=== PATIENT | female | born 1955 | race Caucasian/White ===

== ENCOUNTER → 2018-05-24 02:41 | Outpatient (CLI) | payer MEDICAID, SELFPAY ==
[2018-05-24 08:36] LABS: Cholesterol 224 mg/dL (50-200); Triglyceride 192 mg/dL (30-150)
[2018-05-24 08:48] LABS: ALT 36 U/L (12-78); AST 25 U/L (15-37)
== END ==
PROVIDERS: Visit Provider Dermatology
DX: L40.0 Psoriasis vulgaris (principal); Z79.899 Other long term (current) drug therapy
CPT/HCPCS: 36415; 85027; 82465; 84450; 84460; 84478

== ENCOUNTER → 2018-05-26 01:49 | Outpatient (CLI) | payer MEDICAID, SELFPAY ==
[2018-05-26 07:33] LABS: HGB 13.8 g/dL (12.0-15.5); Mean Corp. HGB Concentration 33.7 g/dL (32.0-36.0); Mean Corpuscular Hemoglobin 32.6 pg (27.0-33.0); Mean Corpuscular Volume 96.9 fL (80-95); Mean Platelet Volume 9.9 fL (8.0-11.0); Platelet Count 289 x1000/uL (130-400); RBC 4.23 m/cumm (4.00-5.20); RBC Distribution Width 13.4 % (11.7-14.6); White Blood Cell Count 5.57 k/cumm (4.4-10.8)
== END ==
PROVIDERS: Visit Provider Dermatology
DX: L40.0 Psoriasis vulgaris (principal); Z79.899 Other long term (current) drug therapy
CPT/HCPCS: 36415; 85027

== ENCOUNTER 2018-11-28 02:34 | Outpatient (CLI) | payer MEDICAID, SELFPAY ==
[2018-11-28 07:47] LABS: HCT 43.8 % (36.0-46.0); HGB 14.2 g/dL (12.0-15.5); Mean Corp. HGB Concentration 32.4 g/dL (32.0-36.0); Mean Corpuscular Hemoglobin 31.6 pg (27.0-33.0); Mean Corpuscular Volume 97.3 fL (80-95); Mean Platelet Volume 11.3 fL (8.0-11.0); Platelet Count 253 x1000/uL (130-400); RBC Distribution Width 13.5 % (11.7-14.6); White Blood Cell Count 6.06 k/cumm (4.4-10.8)
[2018-11-28 08:03] LABS: ALT 22 U/L (12-78); AST 16 U/L (15-37); Albumin 3.9 g/dL (3.4-5.0); Alkaline Phosphatase 67 U/L (46-116); Anion Gap 7.4 mmol/L (3-11); BUN 14 mg/dL (7-18); Bilirubin, Total 0.4 mg/dL (0.2-1.0); CO2 27.6 mmol/L (21.0-32.0); CREATININE 0.78 mg/dL (0.55-1.02); Calcium 9.3 mg/dL (8.5-10.1); Chloride 107 mmol/L (98-107); Cholesterol 205 mg/dL (50-200); Glucose 112 mg/dL (70-100); HDL Cholesterol 52 mg/dL (40-60); LDL CHOLESTEROL 127 mg/dL (<100); Potassium 3.8 mmol/L (3.5-5.1); Sodium 142 mmol/L (136-145); Total Protein 8.1 g/dL (6.4-8.2); Triglyceride 128 mg/dL (30-150)
== END 2018-11-28 02:54 ==
PROVIDERS: Dermatology
DX: L40.0 Psoriasis vulgaris (principal); Z79.899 Other long term (current) drug therapy; I10 Essential (primary) hypertension; E78.5 Hyperlipidemia, unspecified; F41.9 Anxiety disorder, unspecified; R63.8 Other symptoms and signs concerning food and fluid intake; M25.552 Pain in left hip; G89.29 Other chronic pain
CPT/HCPCS: 36415; 80053; 80061; 83721; 85027

== ENCOUNTER 2019-01-08 01:09 | Outpatient (CLI) | payer MEDICAID, SELFPAY ==
--- NOTE | 2019-01-08 10:05 | DI.MAMMO_ITS ---
SYMPTOM/DIAGNOSIS: SCREENING MAMMOGRAMS: Mammograms were interpreted according to the usual protocol including computer analysis with CAD system, tomosynthesis and C view imaging. Comparison is made with exams from [id number]. The breasts are composed of scattered fibroglandular densities, breast density, Category B. No suspicious masses or suspicious microcalcifications are seen. There has been no significant change. IMPRESSION: Category 1, negative mammogram. Yearly screening mammography is recommended. [facility] ASSESSMENT OF FINDINGS: Negative. Category 1. Patient will receive a letter notifying them of these results. BI-RADS category B. There are scattered areas of fibroglandular density.
== END 2019-01-08 01:29 ==
DX: Z12.31 Encounter for screening mammogram for malignant neoplasm of breast (principal)
CPT/HCPCS: 77063; 77067

== ENCOUNTER 2019-06-04 01:50 | Outpatient (CLI) | payer MEDICAID, SELFPAY ==
[2019-06-04 07:42] LABS: Mean Corp. HGB Concentration 32.6 g/dL (32.0-36.0); Mean Corpuscular Hemoglobin 30.8 pg (27.0-33.0); Mean Corpuscular Volume 94.7 fL (80-95); Mean Platelet Volume 10.5 fL (8.0-11.0); Platelet Count 330 x1000/uL (130-400); RBC 4.54 m/cumm (4.00-5.20); RBC Distribution Width 12.9 % (11.7-14.6); White Blood Cell Count 5.61 k/cumm (4.4-10.8)
[2019-06-04 08:22] LABS: ALT 24 U/L (12-78); AST 15 U/L (15-37)
[2019-06-04 08:24] LABS: Cholesterol 217 mg/dL (50-200); Triglyceride 158 mg/dL (30-150)
== END 2019-06-04 02:10 ==
PROVIDERS: Visit Provider Dermatology
DX: L40.0 Psoriasis vulgaris (principal); Z79.899 Other long term (current) drug therapy
CPT/HCPCS: 36415; 85027; 82465; 84450; 84460; 84478

== ENCOUNTER 2019-08-06 08:56 | Outpatient (CLI) | payer MEDICAID, SELFPAY ==
--- NOTE | 2019-08-06 08:52 | DI.RAD_ITS ---
EXAM: XR HIP RT 1V INDICATION: hip pain. TECHNIQUE: 2D digital imaging was performed. FINDINGS: Joint space narrowing, articular sclerosis and periarticular hypertrophic spurring are demonstrated. There is also subchondral cyst formation. The findings are consistent with severe DJD involving the right hip.
--- NOTE | 2019-08-06 08:52 | DI.RAD_ITS ---
EXAM: XR HIP LT COMPLETE AP PELVIS INDICATION: bilateral hip pain. COMPARISON: XR HIP RT 1V from 08/06/2019 TECHNIQUE: 2D digital imaging was performed. FINDINGS: There is joint space narrowing, articular sclerosis and subchondral cyst formation and periarticular hypertrophic spurring. The findings are consistent with severe DJD involving the left hip.
== END 2019-08-06 09:16 ==
PROVIDERS: Visit Provider Physician Assistant
DX: M25.551 Pain in right hip (principal); M25.552 Pain in left hip; M16.0 Bilateral primary osteoarthritis of hip
CPT/HCPCS: 73501; 73502

== ENCOUNTER 2019-09-26 09:48 | Outpatient (CLI) | payer MEDICAID, SELFPAY ==
--- NOTE | 2019-09-26 09:03 | HPE_ITS ---
Assessment and Plan Assessment and plan (1) Degenerative joint disease of left hip: Status: Chronic Assessment and plan: Plan: Patient is a reliable historian and denies any areas of skin breakdown along the left groin and anterior leg. Educated patient that if they develop any lesions, redness or skin breakdown to contact office as skin concerns would be a reason to cancel surgery. Patient gives verbal understanding. Educated patient on surgery covering surgical technique via models, recovery process, benefits and risks including but not limited to risk of infection, blood clot, fracture, numbness/tingling, leg length discrepancy, damage to soft tissue/blood vessels/nerves in detail. After discussion patient gives verbal understanding of risks and elects to proceed with scheduling surgery. Patient had opportunity to have questions answered to their satisfaction. They will contact office if issues arise. Patient will continue to be scheduled for left total hip replacement with Dr. Garcia. History of Present Illness Narrative: Ms. Grajeda is a 64-year-old female who presents to clinic for pre- operative exam for scheduled left CARMEN. Patient reports several year history of left hip pain with more extreme pain affecting her gait over the last year and the right hip has started to hurt this year as well. Patient identifies majority of her discomfort along lateral aspect of her hips. Pain is noted to be most severe when moving from sitting to standing position, sitting for prolonged amounts of time, at night when laying on her side, when ascending any hills or stairs and with even hip flexion such as stepping over the small threshold into her shower. Patient reports difficulty putting on socks on the left foot and has adapted her shoe wear to avoid laces. Occasionally patient will have radiation of pain down to her left knee. In addition to pain patient feels that her lower extremities are weak and she has noticed difficulty walking due to bilateral hip pain. Patient has been using a cane to help ambulate for approximately 2 months. Previously she has attempted to treat her discomfort by taking Tylenol and Celebrex without symptomatic relief. Review of patient's chart shows history of trochanteric bursa injection by Dr. Masters in March 2018 which patient states did not provide significant pain relief. Reports fell on the Tuesday after Thanksgiving backwards onto her concrete steps at her apartment. Patient was able to stand and weight bear with discomfort that lasted a few days before resolving back to her baseline. Denies symptoms of numbness or tingling. Due to continued pain and severe DJD she was offered surgical intervention and elected to proceed. Pertinent Surgical Information Denies past medical history of: stroke, cardiac issues, angina, COPD, sleep apnea, renal issues, liver issues, hepatitis, gastrointestinal issues, ulcers, bleeding disorders, seizures, migraines, depression, diabetes, autoimmune disorders Denies prior complications from surgery or anesthesia. Review of Systems Constitutional Constitutional: Denies fever(s), Denies frequent falls and Denies headache(s) Eyes Eyes: Denies change in vision ENT Ears, Nose, Mouth, and Throat: Denies dizziness, Denies ear discharge, Denies headache(s), Denies epistaxis, Denies nasal discharge and Denies sore throat Cardiovascular Cardiovascular: Denies chest pain, Denies rapid heart rate, Denies irregular heart rhythm, Denies dyspnea, Denies dyspnea on exertion, Denies orthopnea, Denies paroxysmal nocturnal dyspnea and Denies slow heart rate Respiratory Respiratory: Denies cough, Denies dyspnea, Denies dyspnea on exertion and Denies wheezing Gastrointestinal Gastrointestinal: Denies abdominal pain, Denies melena, Denies hematochezia, Denies constipation, Denies diarrhea, Denies nausea and Denies vomiting Genitourinary Genitourinary: Denies hematuria, Denies dysuria and Denies urinary urgency Musculoskeletal Musculoskeletal: Reports as per HPI, Denies numbness and Denies tingling Neurologic Neurologic: Denies dizziness, Denies frequent falls, Denies headache(s), Denies numbness and Denies tingling Psychiatric Psychiatric: Denies anxiety and Denies depression Allergic/Immunologic Allergic/Immunologic: Denies wheezing [facility] Medical History (Updated 09/26/19 @ 09:14 by Winter Chester) Anxiety (Chronic 09/01/17) Asthma (Suspected) does not use inhalers Cyst of joint of left hand (Suspected 11/29/17) Cystocele, midline (Chronic) Degenerative joint disease of left hip (Chronic) Degenerative joint disease of right hip (Chronic) Essential hypertension (Chronic 01/07/14) Glaucoma (Chronic) 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 Kang and Gaby Hyperlipidemia (Chronic) Not on medication; states borderline Increased body mass index (Acute 01/07/14) Psoriasis (Chronic 06/12/18) Derm Consult 06/09/18: Controlled with methotrexate. 2.5% hydrocortisone cream ears & elbows. Retention of urine (Acute) Rosacea (Acute) Urticaria (Acute 01/07/14) Uterine leiomyoma (Resolved) Surgical History Cervical Procedure (07/17/12) Endometrial Biopsy Colonoscopy - IV Sedation (10/06/11) HERNIA REPAIR HIATAL Social History (Updated 09/26/19 @ 09:16 by Winter Chester) Smoking/Tobacco Use Status: Never Alcohol Intake: current Substance use type: does not use Caregiver/Support person: No Household members: none Housing: apartment Pets and animals: No Sexually active: No Do you think of yourself as: straight/heterosexual Current gender identity: female What is your relationship status?: How often do you talk on the phone with friends or family?: three or more times per week How often do you get together with friends or relatives?: three or more times per week How often do you attend faith or rastafarian services?: decline to answer Do you belong to any clubs or organized social groups?: no Panel score (0-1 are the most socially isolated patients): 1 What type of physical activity do you participate in: walking Duration: 15-30 minutes/day Frequency: daily Claire/Samaritan: Yarsani Special claire needs: No Meds Home Medications and Allergies Home Medications Medication Instructions Recorded Confirmed Type calcium carbonate-vitamin D3 1 tab PO PRN 08/12/14 09/26/19 History folic acid 1 mg PO 6 days weekly 02/13/16 09/26/19 History triamcinolone acetonide 1 applic TOPICAL BID PRN script 06/01/16 09/26/19 History acetaminophen [Tylenol Extra 1,000 mg PO TID PRN #90 tab-cap 12/27/17 09/26/19 History Strength] loratadine [Claritin] 10 mg PO DAILY #30 tab-cap 01/23/18 09/26/19 Rx docosanol [Abreva] 2 gm TOPICAL Q3H PRN #1 script 01/25/18 09/26/19 Rx atenolol 25 mg PO DAILY #45 tab-cap 08/21/18 09/26/19 Rx methotrexate sodium 2.5 mg tablet 10 mg PO one day a week tab 12/10/18 09/26/19 History celecoxib 200 mg capsule 200 mg PO BID #60 cap 06/13/19 09/26/19 Rx lorazepam 0.5 mg tablet 0.5 mg PO HS PRN #30 tab-cap 06/13/19 09/26/19 Rx tramadol 50 mg tablet 50 mg PO BID PRN #14 tab 09/05/19 09/26/19 Rx Hospital Bed #1 ea 09/24/19 09/26/19 Rx Allergies Allergy/AdvReac Type Severity Reaction Status Date / Time band aid adhesive AdvReac Intermediate swelling Uncoded 09/26/19 09:16 and itching Exam Const General: cooperative and no acute distress HENMT Head: normal to inspection, normocephalic and atraumatic Ears: external ears normal General nose exam: external nose normal and no nasal discharge Face and sinus: face symmetric Mouth: oral mucosae normal, lip normal, tongue normal and moist mucous membranes Teeth and gingiva: dentition normal Throat: posterior oropharynx normal Eyes General: appearance normal, both eyes and all related structures EOM: EOM intact bilaterally Other: Glaucoma in the left eye Neck Neck: trachea midline Carotids: normal carotid upstroke Lymphatic: no lymphadenopathy noted Resp Effort & Inspection: normal respiratory effort and able to speak in complete sentences Auscultation: clear to auscultation bilaterally, no rales, no rhonchi and no wheezes Cardio Heart Sounds: S1 normal, S2 normal and no murmurs Pulses: radial pulses present bilaterally GI Palpation: soft, no hepatosplenomegaly and nontender Auscultation: normal bowel sounds Skin General skin exam: no rashes or lesions noted
[2019-09-26 11:27] LABS: HCT 43.4 % (36.0-46.0); HGB 14.6 g/dL (12.0-15.5); Mean Corp. HGB Concentration 33.6 g/dL (32.0-36.0); Mean Corpuscular Hemoglobin 32.1 pg (27.0-33.0); Mean Corpuscular Volume 95.4 fL (80-95); Mean Platelet Volume 10.2 fL (8.0-11.0); Platelet Count 411 x1000/uL (130-400); RBC 4.55 m/cumm (4.00-5.20); RBC Distribution Width 13.7 % (11.7-14.6); White Blood Cell Count 8.56 k/cumm (4.4-10.8)
[2019-09-26 12:09] LABS: Anion Gap 10.5 mmol/L (3-11); BUN 9 mg/dL (7-18); CO2 26.5 mmol/L (21.0-32.0); CREATININE 0.71 mg/dL (0.55-1.02); Calcium 9.5 mg/dL (8.5-10.1); Chloride 107 mmol/L (98-107); Glucose 97 mg/dL (74-106); Sodium 144 mmol/L (136-145)
== END 2019-09-26 10:08 ==
PROVIDERS: Visit Provider Student in an Organized Health Care Education/Training Program
DX: M25.552 Pain in left hip (principal); M17.12 Unilateral primary osteoarthritis, left knee; Z01.818 Encounter for other preprocedural examination; Z01.812 Encounter for preprocedural laboratory examination
CPT/HCPCS: 36415; 80048; 85027; 86850; 86900; 86901; NC

== ENCOUNTER 2019-10-03 05:50 | Inpatient (IN) | payer MEDICAID, SELFPAY ==
[2019-09-26 10:12] VITALS: BP 132/84; PULSE 77; RESP 16; TEMP 37; O2SAT 98
[2019-10-03] VITALS (15 sets, daily range): BP systolic 56–158; BP diastolic 38–89; PULSE 62–110; RESP 16–29; TEMP 36.1–36.8; O2SAT 96–100
[2019-10-03] MEDS: Celecoxib 200 MG CAP 400 MG PO (06:32)
[2019-10-03] MEDS: Acetaminophen 500 MG TAB 1000 MG PO ×3 (06:33→20:08)
[2019-10-03] MEDS: Lactated Ringers 1,000 ML 80 ML IV ×4 (06:56→21:34)
[2019-10-03] MEDS: ceFAZolin 2 GM/50 ML BAG IVPB (07:53)
--- NOTE | 2019-10-03 09:11 | DI.RAD_ITS ---
EXAM: XR HIP LT IN OR CLINICAL HISTORY: DJD LEFT HIP. TECHNIQUE: 2D and realtime digital imaging was performed. COMPARISON: No exams were available for comparison FINDINGS: Hard copy images show placement of a left hip prosthesis. FLUORO TIME: 49.1 seconds
[2019-10-03] MEDS: Bupivacaine 0.25% Pres-Free 30 ML VIAL (10:24)
[2019-10-03] MEDS: Ketorolac 30 MG/ML VIAL (10:25)
[2019-10-03] MEDS: ceFAZolin 1 GM/50 ML BAG IVPB ×2 (14:30→21:34)
--- NOTE | 2019-10-03 15:01 | NUR.NOTE ---
Nursing Note: 1248: pt arrives to room 217 via pt bed from pacu. pt is alert/oriented x 3. pt has patent flood draining clear yellow urine. pt has patent IV in RH with LR@80cc/hr. pt dressing intact. pt TEDS and SCD in place. ice pack to hip. pt HR regular, LS clear, hypo bs, +pp's bilaterally. pt denies pain at this time. pt oriented to call woody system/tv remote. fluids at the bedside. continue to monitor.
--- NOTE | 2019-10-03 15:12 | IN_ITS ---
Date of service: 10/03/19 Time of Service: 15:12 PT Notes Visit Reasons: LEFT HIP DJD Physical Therapy Inpatient Initial Evaluation Date: 10/03/2019 Referring Doctor: Kendrick Garcia MD PT Orders: PT CONSULT: Status post Ortho surgery. Status post left anterior CARMEN Precautions: Fall. Standard. Left eye blind. WBAT on left LE. Patient Profile/Admitting Diagnosis: Patient is a 64-year-old female with degenerative joint disease of the left hip and is status post left anterior total hip arthroplasty with cable fixation of intraoperative fracture on postoperative day 0. 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 Kang and Gaby Hyperlipidemia (Chronic) Not on medication; states borderline Increased body mass index (Acute 01/07/14) Psoriasis (Chronic 06/12/18) Derm Consult 06/09/18: Controlled with methotrexate. 2.5% hydrocortisone cream ears & elbows. Retention of urine (Acute) Rosacea (Acute) Urticaria (Acute 01/07/14) Uterine leiomyoma (Resolved) Surgical History Cervical Procedure (07/17/12) Endometrial Biopsy Colonoscopy - IV Sedation (10/06/11) HERNIA REPAIR HIATAL Social History/Home Situation: Patient lives alone in an apartment with 2 floors and 2 steps to enter without rails. She has 13 steps to the second floor where her bedroom is. She elaborates that Dr. Garcia's team is working on processing a hospital bed for her at home and on providing certification that she will need rails on the entrance steps to maximize safety and mobility ADL performance. She has a friend who helps with groceries. She does well with frozen dinners. She is independent with ambulation using a single-point cane for the past 2 months prior to surgery as it was getting harder to walk due to arthritis. Prior to 2 months she was independent with all ambulation activities without the need for an assistive device. She has a son who lives close by but does not have a car. The laundry area is in a separate building and she has struggled to do this for the past several months as she needed to carry her laundry while walking on snow with her cane. 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 Equipment Owned/DME: [facility] Subjective: Patient reports that her left shoulder hurts more than her hip describing it as constant gripping pain like somebody is holding onto it very tightly. Objective: General Observation: Blind in L eye, IV in R UE, flood catheter in place, Meoilex Ag over surgical incision Mental Status: Alert and oriented x4 Pain: Left shoulder 5/10. Left hip 2/10. ROM: Right Upper Extremity: Shoulder Flexion WFL. Shoulder abduction WFL. Elbow flexion WFL. Wrist flexion WFL. Opening and closing of hand WFL. Left Upper Extremity: Shoulder Flexion WFL. Shoulder abduction WFL. Elbow flexion WFL. Wrist flexion WFL. Opening and closing of hand WFL. Right Lower Extremity: Hip flexion WFL. Hip abduction WFL. Knee flexion WFL. Ankle dorsiflexion WFL. Ankle plantarflexion WFL. Left Lower Extremity: Hip flexion WFL. Hip abduction WFL. Knee flexion WFL. Ankle dorsiflexion WFL. Ankle plantarflexion WFL. Strength: Right Upper Extremity: Shoulder flexors 5/5. Shoulder abductors 5/5. Elbow flexors 5/5. Elbow extensors 5/5. Injection Molding Machine Tender strong. Left Upper Extremity: Shoulder flexors 5/5. Shoulder abductors 5/5. Elbow flexors 5/5. Elbow extensors 5/5. Injection Molding Machine Tender strong. Right Lower Extremity: Hip flexors 5/5. Hip abductors 5/5. Knee flexors 5/5. Knee extensors 5/5. Ankle dorsiflexors 5/5. Ankle plantarflexors 5/5. Left Lower Extremity:Hip flexors 3+/5. Hip abductors 3+/5. Knee flexors 3+/5. Knee extensors 3+/5. Ankle dorsiflexors 5/5. Ankle plantarflexors 5/5. Sensation: Intact as to pain and pressure on bilateral lower extremities. Bed Mobility/Transfers: Rolling SBA Supine to sit SBA Sit to supine SBA Sit to stand CGA Stand to sit CGA Bed to chair CGA Chair to bed CGA Gait: Patient tolerated level surface ambulation of 50 feet using front wheel walker requiring CGA of this PT and wheelchair follow of nurse Karen with step to gait pattern. Left hip internal rotation and toeing in observed. Asymmetric step height and length as well as decreased jennifer noted however patient did not complain of increased pain with weight bearing. Balance: Static Sitting: Normal Dynamic Sitting: Normal Static Standing: Fair Dynamic Standing: Fair Special Tests: Mobility Limitations Standardized Measure [facility] AM-PAC 6 clicks Basic Mobility Inpatient Short Form: Raw Score: 18 CMS Score: 47% deficit Informed Consent/Education: Patient instructed in purpose of PT consult and plan of care. Patient was also instructed with hourly performance of gluteal as well as quadriceps muscle setting exercises x10 reps and ankle pumping x 20 to be done on her own on top of skilled PT services that she will be getting while on admission. Assessment: Patient is a 64-year-old female with degenerative joint disease of the left hip and is status post left anterior total hip arthroplasty with cable fixation of intraoperative fracture on postoperative day 0 now presenting with findings and functional limitations as listed below. Her home environment is not handicap accessible but per patient, care management and Dr. Garcia's team are working on ensuring that needed documentation and certification are provided to Estefany's landlord to facilitate renovations that will reduce fall risk at home. She may need assistance with doing her laundry. the laundry area is in a separate building and she has to walk on snow wit. h her laundry to get there. She is pleasant and cooperative. She is motivated to return to prior level of function. Her prognosis for regaining previous mobility level is fair. Patient presents with clinical signs and symptoms consistent with current/admitting diagnoses that have resulted to mobility limitations, gait instability, generalized weakness, and impairment of motor control as demonstrat ed by the following impairment level findings: 1. Decreased strength to right hip and knee major muscle groups 2. Impaired standing balance 3. Impaired activity tolerance Impairments are contributing to the following functional limitations: 1. Dependent bed mobility skills 2. Increased dependence with transfers 3. Inability to safely ambulate without assistive device and physical assistanc e 4. Increase completion time for mobility ADL performance 5. Increased fall risk 6. Inability to negotiate steps alone safely Patient is assessed as a 81955 moderate complexity based on the following: History: Patient is a 64-year-old female with degenerative joint disease of the left hip and is status post left anterior total hip arthroplasty with cable fixation of intraoperative fracture on postoperative day 0 with impairments, functional limitations and past medical history as indicated above Examination: Demonstrable impairment in strength, balance, and range of motion with underlying impairments and functional limitations as documented above Presentation:Evolving Decision Makin moderate complexity Goals: Goals X1 week 1. Supine-Sit independent 2. Sit-Supine independent 3. Sit-Stand independent 4. Stand-Sit independent 5. Bed-Chair independent 6. Chair-Bed independent 7. Independent gait on level surface with use of least restrictive device for at least 300 feet without report of pain nor dyspnea 8. Independent stair negotiation while holding onto bilateral rails for at least 10 steps without report of pain nor dyspnea 9. Independent with home exercise program 10. Good static and dynamic standing balance/tolerance Plan of Care/Treatment Plan: 1-2x/day, 7 days/week x 1 week. Plan of care has been reviewed with the SUPERVISOR PLEATING providing the service under Physical Therapy direction. Initiate Physical Therapy intervention for strengthening, bed mobility, transfers, gait, stairs, balance training, use of assistive device. DISCHARGE RECOMMENDATIONS: Patient will benefit from [facility] facility placement for continued skilled physical therapy services in order to progress mobility level, strength, and balance in preparation for a safe discharge to home. Equipment recommendations include hospital bed, front wheeled walker, and raised toilet seat. Installation of grab bars as well as bilateral rails on the entrance steps will reduce fall risk. Patient will require home health PT services once discharged home in order to facilitate a smooth transition to the home. TREATMENT CODE/TIME: 9716 2 x 30 minutes, 74320 x 10 minutes beginning at 15:12 PM Thank you very much for this referral. Darlin Kelley PT, DPT, CLT [facility] [place], [place]
[2019-10-03] MEDS: Lactated Ringers 500 ML IV (18:09)
[2019-10-03] MEDS: Aspirin E.C. 81 MG TABEC PO (20:08)
[2019-10-03] MEDS: Celecoxib 200 MG CAP PO (20:08)
--- NOTE | 2019-10-03 21:06 | ROE_ITS ---
Date of service: 10/03/19 Time of Service: 12:07 Operative Note Operative Note DATE OF PROCEDURE: 10/03/19 PRE-OP DIAGNOSIS: Left Hip DJD POST-OP DIAGNOSIS: same PROCEDURE: Left Anterior Total Hip Arthroplasty with cable fixation of intraoperative fracture SURGEON: Kendrick Garcia PROFILE MILL OPERATOR TAPE CONTROL: Jesus Harmon ANESTHESIA: spinal ESTIMATED BLOOD LOSS: 400 PATHOLOGY: none sent COMPLICATIONS: Other (Fracture of the proximal anterolateral femur identified and fixed with cables) Patient was transported to: PACU Patient's condition: stable Implants: 1. Depuy [place] Acetabular Component, 54mm 2. Depuy Acetabular Liner, 10x93ef 3. Depuy Corail Standard Collared Femoral Stem, Size 13 4. Depuy Altrx Ceramic Femoral Head, Size 36+1.5mm Indications: I have seen Estefany in clinic for symptoms of hip arthritis, confirmed with radiographic findings. Estefany has exhausted nonoperative methods and was having significant limitations in daily function and desired better function and less pain. I discussed the technical details of a hip replacement. I explained the risks of the procedure to include, but not limited to, bleeding, infection, pain, stiffness, fracture, damage to nerves and vessels, damage to muscles and tendons, loosening, instability, leg length inequality, need for repeat procedure, blood clot and cardiopulmonary demise. Despite these risks, Estefany elected to proceed. Findings: There was significant signs of arthritis throughout the hip. Large osteophytes were seen around the femur and the acetabulum. The bone quality was quite poor. During planing, after broaching, there was a notable displacement in a crack over the anterior proximal cortex. This did extend beyond the intertrochanteric line with a second fracture line at the posterior junction of the proximal femur and greater trochanter. It was secured with two cables and was stable through final femur impaction and manipulation. Procedure Description: Estefany was greeted in the preoperative holding area where the correct side was identified and marked. The consent was reviewed with the patient and signed. The history and physical was updated. All questions were answered. Estefany was taken back to the operating room. A spinal anesthestic was then administered. The patient was placed into the supine position on the operating room table. The patient was then positioned onto the ARCH table. Both feet were wrapped with Webrill cotton wrap along with Coban. The feet were placed in specialized boots for the ARCH table, well seated within the boot and secured. SCDs were applied. The patient was then slid down onto a peroneal post and the nonoperative leg was secured in a leg allen attached to the table. The operative side was placed into the ARCH table attachment and bed height and positioning was secured. A preoperative AP pelvis was obtained to serve as a reference for determining leg lengths. Prophylactic antibiotics in the form of Cefazolin were administered. 1g of Tranxemic Acid was given intravenously within 30 minutes of incision. The left leg was then prepped with Chloraprep and draped in a standard fashion. A second prep was performed prior to placing the final shower-curtain type drape with Iodine impregnated skin protection. A timeout to confirm correct identity, side and site, procedure, allergies, anesthesia, and medical concerns was performed. An obliquely oriented incision was made starting lateral to the ASIS and running distal over the Tensor Fascia Dorita (TFL) muscle belly toward the fibular head, approximately 10cm. The skin and soft tissue was dissected sharply, through Dennise?s fascia, and to the fascia of the TFL. With the fascia and superior border of the IT band identified, the fascia was incised with a new knife just above any perforators from the IT band. The TFL muscle belly was bluntly dissected away from the fascia and moved laterally. The fat between TFL and rectus was identified to ensure the dissection was not within the TFL. Blunt dissection created space between abductors and the capsule and retractor was placed over the lateral femoral neck. The fibers of the rectus femoris tendon were identified and these were freed from the anterior capsule. A second cobra retractor was placed around the medial femoral neck. The TFL was further retracted laterally to show the deep fascia. Careful dissection through this layer identified three main crossing vessels of the lateral femoral circumflex. These were cauterized in multiple locations and then cut without any noticeable bleeding. The TFL was further released bluntly from the deep fascia to expose anterior hip capsule and fat The Akin orthopaedic retractor was then placed beneath the TFL and against sartorius and medial soft tissues to protect and retract the soft tissues. A T-capsulotomy was then performed starting at the superior lateral acetabulum and moving distally to the intertrochanteric ridge. These capsular flaps were tagged with a No. 1 Ethibond and elevated from within. The capsular flaps were released to the shoulder of the lateral neck and to the lesser trochanter to give excellent visualization of the proximal femur. A neck osteotomy was performed using an oscillating saw based on preoperative templates. This cut started in the shoulder and of the lateral neck and exited medially. The saw was at all times directed medially to avoid injury to the greater trochanter. 6cm of traction was applied to the leg and the osteotomy opened. The femoral head was removed with a corkscrew, making sure to protect the TFL on its exit. This was measured on the back table to determing the starting reamer size. Portions of the rectus obscuring visualization were minimally elevated off the superior acetabulum. An anterior retractor was pl aced over the anterior wall between capsule and labrum and held with the Gripper retraction system. A posterior retractor was placed similarly. This provided excellent visualization. The contents of the cotyloid fossa were removed with electrocautery and the labrum was removed with a knife. There was a notable floor osteophyte. There was significant chondromalacia of the superior acetabulum. Osteophytes were seen around the proximal femur and the acetabulum. Acetabular reaming began with a 48mm reamer. This first reaming was directed anterior to posterior and medial to get down to the true floor. This was inspected and reamed until the true floor was reached. I then reamed sequentially up to a 54mm reamer where good fit was obtained. The larger reamers were oriented based on anatomical reference of the anterior and lateral malloy to ensure proper abduction and anteversion. Positioning and size was confirmed with the fluoroscopy. A 48mm Depuy [place] acetabular component was selected. The acetabulum was reamed around the periphery with the selected acetabular size to prevent a rim fit. The deep tissues were irrigated. The acetabular component was then impacted in a position of about 40-45 degrees of abduction and 15-20 degrees of anteversion, using the patient?s anatomy as the ultimate landmark. Fluoroscopy was used to confirm this. There was excellent food safety coordinator of the acetabular component and the inserting handle was removed. A primary acetabular screw was placed into the ilium by drilling through one of the holes in the acetabular component. This was measured and an approrpriately sized screw was placed with excellent purchase. It was checked not to be proud. The acetabular liner, Depuy [id number] polyethylene liner, was inserted and lined up with the tines of the acetabular component. There was no soft tissue interposition. The liner was then impacted into position and confirmed to be well-seated. A portion of the otis-articular cocktail was then injected around the acetabulum into the capsule and periosteum. This cocktail consisted of 50cc of 0.25% Bupivicaine and 20cc of Exparel, expanded to a total of 120cc. Traction was released from the femur. The leg was rotated to 120 degrees. Any remaining medial capsule was released until the lesser trochanter was easily palpable. A Dorantes retractor was placed medially. The lateral capsule was further released into the shoulder to allow access to the greater trochanter. A Dorantes retractor was placed over the greater trochanter which allowed the trochanter to flip in front of the capsule for excellent exposure. The leg was brought down into maximal extension and 20 degrees of adduction while ensuring there was no impingement on the acetabulum. Any remnant capsule within the t rochanter was released. Piriformis and obturator externis were identified and protected. There was excellent access to the proximal femur. The lateral neck remnant was removed with a rongeur. A blunt canal probe was used to identify the canal and trajectory for later broaching. A box osteotome initiated the broach course. A small curved rasp and a curved curette were used to work laterally. Broaching then began with a size 8 Corail broach. This was inserted manually around the trochanter and into the canal before mallet blows. The broach was seated to a few millimeters below the cut level based on the neck cut and the preoperative template. Sequential broaching was continued until a tight fit was obtained with good rotational control of the femur. A contained planer was used to plane the surface of the proximal femur. During this there was a crack noted over the anterior proximal femur which displaced. This seem to connect to a crack at the junction of the greater trochanter and the posterior femur. The medial aspect of the femur was intact. I then placed two Synthes cables, one above and one below the lesser trochanter. This had an anatomic reduction. I then reimpacted the Corail broach size 13 without displacement of the fracture. A trial standard neck was inserted along with a +1.5 trial head. The leg was brought out of extension and adduction and then reduced with traction and internal rotation. The leg was stable anteriorly in a position of 30 degrees of extension and 90 degrees of external rotation. Fluoroscopy was used to ensure there was no fracture and the stem was seated well. Leg lengths were checked with an AP pelvis and pelvic reference points using the galaxyadvisors intraoperative system. Once content with the desired offset and leg lengths, the leg was brought back into extension, external rotation and adduction. The periosteum and surrounding tissue was injected with remaining portion of the otis-articular cocktail. The proximal femur was irrigated as well as the deep tissues. The Depuy Corail standard collared stem, size 13, was then manually inserted into the proximal femur making sure to control rotation. It was then malleted into position with light blows, giving breaks to allow bone expansion and decrease risk of fracture. The selected Depuy Altrx Ceramic Head, size 36+1.5mm, was then placed onto the clean and dry trunnion and secured with impaction onto the tapered fit. The leg was brought back out of extension and adduction and reduced with traction and internal rotation. Stability was confirmed with no shuck at 90 degrees of external rotation and 30 degrees of extension. No impingement through range of motion arc. Final x-ray images were obtained with fluoroscopy. The deep tissues were thoroughly irrigated with a pulse lavage. The second dose of TXA 1g was administered intravenously.The capsule was then reapproximated with the previously placed Ethibond sutures. The TFL fascia was finally closed with a No. 2 Stratafix, barbed suture. Deep tissues were then reapproximated with 0 Vicryl and a running 2-0 Vicryl. The skin was closed with a running 4-0 Monocryl in a subcuticular fashion. This was reinforced with skin glue. A Mepilex silver dressing was applied. At the end of the case, all counts were correct. Estefany was transferred to the hospital bed without difficulty and suffering no apparent complication. Estefany has a good prognosis. Physical therapy will start today and without restrictions, weight-bearing as tolerated. SHe is to use an assistive device at all times to protect the fracture. Aspirin 81mg BID will be used for DVT prophylaxis.
[2019-10-04 03:44] VITALS: BP 110/74; PULSE 78; RESP 17; TEMP 37; O2SAT 97
[2019-10-04] MEDS: ceFAZolin 1 GM/50 ML BAG IVPB (06:36)
[2019-10-04 07:01] LABS: HCT 32.8 % (36.0-46.0); HGB 10.6 g/dL (12.0-15.5); Mean Corp. HGB Concentration 32.3 g/dL (32.0-36.0); Mean Corpuscular Hemoglobin 30.9 pg (27.0-33.0); Mean Corpuscular Volume 95.6 fL (80-95); Mean Platelet Volume 10.5 fL (8.0-11.0); Platelet Count 299 x1000/uL (130-400); RBC 3.43 m/cumm (4.00-5.20); RBC Distribution Width 13.3 % (11.7-14.6); White Blood Cell Count 7.37 k/cumm (4.4-10.8)
[2019-10-04 07:29] LABS: Anion Gap 7.9 mmol/L (3-11); BUN 11 mg/dL (7-18); CO2 26.1 mmol/L (21.0-32.0); CREATININE 0.65 mg/dL (0.55-1.02); Calcium 8.5 mg/dL (8.5-10.1); Chloride 110 mmol/L (98-107); Glucose 105 mg/dL (74-106); Potassium 3.7 mmol/L (3.5-5.1); Sodium 144 mmol/L (136-145)
[2019-10-04 07:34] VITALS: BP 126/84; PULSE 92; RESP 17; TEMP 36.7; O2SAT 98
[2019-10-04] MEDS: Aspirin E.C. 81 MG TABEC PO ×2 (08:39→19:10)
[2019-10-04] MEDS: Pantoprazole 40 MG TABCR PO (08:39)
[2019-10-04] MEDS: Atenolol 25 MG TAB PO (08:39)
[2019-10-04] MEDS: Acetaminophen 500 MG TAB 1000 MG PO ×3 (08:40→19:10)
[2019-10-04] MEDS: Folic Acid 1 MG TAB PO (08:40)
[2019-10-04] MEDS: Celecoxib 200 MG CAP PO ×2 (08:40→19:10)
[2019-10-04] MEDS: oxyCODONE 5 MG TAB PO (10:23)
[2019-10-04 11:12] VITALS: BP 108/75; PULSE 93; RESP 16; TEMP 36.7; O2SAT 98
[2019-10-04] MEDS: Lactated Ringers 1,000 ML 80 ML IV ×2 (11:13→23:52)
--- NOTE | 2019-10-04 11:37 | W.NUTCONSULT ---
Date of service: 10/04/19 Time of Service: 11:37 Nutritional Consult NUTRITIONAL DIAGNOSIS: 64 year old female here for left hip DJD. Currently following regular meal plan with adequate intake. BMI indicates overweight status. Not currently considered at nutritional risk. MONITORING AND EVALUATION: will monitor weight and po intake trends Time Spent in Nutritional Counseling and Treatment: 0 time spent face to face
--- NOTE | 2019-10-04 13:44 | PTTR_ITS ---
Date of service: 10/04/19 Time of Service: 13:45 PT Notes Visit Reasons: LEFT HIP DJD Inpatient Physical Therapy Treatment Note [facility] Date: 10/04/19 PRECAUTIONS: Fall, WBAT L SUBJECTIVE: Estefany is agreeable to participating in PT. She reports that she has had some increased soreness in her left hip and buttock area today versus yesterday. OBJECTIVE: PAIN: Patient complains of left hip and buttock discomfort with ther ex and gait training BED MOBILITY/TRANSFERS Supine-sit: I with HOB flat Sit-supine: I with HOB flat Sit-stand: SBA Stand-sit: SBA GAIT Assistive Device: FWW Weight bearing: WBAT L Assist: SBA Distance: 150' in a.m.; 200' in p.m. Deviation: Seated rest x1 in p.m., cueing for step-through gait pattern, toeing- in on L THEREX: Patient completed a lower extremity strengthening and stabilization program, in both seated and long?sit positions, as per flow sheet. STAIRS: Up/down 3?4 and 2?6 using one rail/SPC and a step to pattern, with SBA. Patient requires moderate cueing for appropriate sequence. ASSESSMENT: Patient tolerated session well, with complaint of increased left hip and buttock discomfort with ther ex gait training. Patient was able to daisy erate a progression in gait distance with FWW support and SBA. Patient was able to tolerate the addition of stair training, requiring moderate cues for appropriate sequence. She would benefit from continued gait and transfer training as well as continued strengthening for improved mobility and improved ability to perform daily functional tasks at a more independent level.. PLAN: Continue with PTs POC TREATMENT CODE/TIME: Session 1: 25 minutes; [id number], [id number] Session 2: 30 minutes; [id number], [id number]
--- NOTE | 2019-10-04 14:35 | CHAPLAIN ---
Lyssa was in bed after participating in PT. She said her hip surgery turned out to be more complicated than first thought, but she is looking forward to having not pain in her hip after her recovery. Her isn't able to visit, because he doesn't drive, and a daughter lives too far away. Lyssa belongs to [facility], and so I let her know that Fr. Bello usually visits on Tuesday afternoons.
--- NOTE | 2019-10-04 14:50 | W.PM.PROGNOT ---
Date of Service Date of service: 10/04/19 Time of Service: 07:51 Assessment and Plan Assessment and plan (1) Degenerative joint disease of left hip: Status: Chronic Assessment and plan: Estefany is a 64-year-old status post left hip replacement with intraoperative fracture. She is doing well. We will continue to mobilize cautiously. She may weight-bear as tolerated without restrictions except that she must use some assistive device at all times with ambulation. She does have a difficult home situation with no living space on the first floor and no handrails in her house. She is working with her landlord and awaiting a hospital bed delivery. I will default to physical therapy when she is ready for home discharge, likely with home health physical therapy services. Continue aspirin for DVT prophylaxis. Qualifiers: Osteoarthritis type: primary Qualified Code(s): M16.12 - Unilateral primary osteoarthritis, left hip Subjective Subjective Interval history since last seen: Estefany is postop day #1 status post left anterior replacement. She did suffer a intraoperative femur fracture which is cabled and appeared to be stable and secure. She has been able to mobilize on multiple occasions out any significant increase in pain. She still has some difficulties with trying to get out of bed independently but has had no issues with standing or walking, using an assistive device. She denies any numbness or tingling. She denies shortness of breath or chest pain. Exam Narrative Exam Narrative: Estefany is lying comfortably in the hospital bed. Her dressing is clean dry and intact. Her hip is soft without any signs of hematoma or swelling. She tolerates gentle internal and external rotation of the hip without pain or limitation. Intact ankle dorsiflexion, ankle plantarflexion, great toe extension. Sensation intact light touch over the femoral and sciatic nerve distributions. Objective Objective Clinical Data: Abnormal lab results 10/04/19 10/04/19 Range/Units 06:40 06:40 RBC 3.43 L (4.00-5.20) m/cumm Hgb 10.6 L (12.0-15.5) g/dL Hct 32.8 L (36.0-46.0) % MCV 95.6 H (80-95) fL Chloride 110 H (98-107) mmol/L Vital Signs Temperature 36.7 C 10/04/19 11:12 Temperature Source Tympanic 10/04/19 11:12 Pulse 93 H 10/04/19 11:12 Pulse Rhythm Regular 10/04/19 09:31 Respiratory Rate 16 10/04/19 11:12 Respiratory Effort Non-Labored 10/04/19 09:31 Respiratory Depth Normal 10/04/19 09:31 Respiratory Pattern Normal 10/04/19 09:31 Blood Pressure 108/75 10/04/19 11:12 Pulse Oximetry 98 10/04/19 11:12 Respiratory End-tidal CO2 31 10/03/19 12:32 Oxygen Delivery Method Room Air 10/04/19 11:12 Oxygen Flow Rate 0 10/04/19 11:12 Pain Level 3 10/04/19 13:50 Intake & Output 10/03/19 10/04/19 10/04/19 23:59 11:59 23:59 Intake Total 2826 / 4040.667 1200 / 1500 300 / 1500 Output Total 800 / 1500 1200 / 1200 Balance 2026 / 2540.667 0 / 300 300 / 300 Intake: IV 2106 / 3230.667 1000 / 1000 Oral 720 / 810 200 / 500 300 / 500 Output: Urine 800 / 1100 1200 / 1200 Other: Urine Color Yellow Yellow Urine Appearance Clear Clear Emesis Description None Laboratory Results WBC 7.37 k/cumm (4.4-10.8) 10/04/19 06:40 RBC 3.43 m/cumm (4.00-5.20) L 10/04/19 06:40 Hgb 10.6 g/dL (12.0-15.5) L 10/04/19 06:40 Hct 32.8 % (36.0-46.0) L 10/04/19 06:40 MCV 95.6 fL (80-95) H 10/04/19 06:40 MCH 30.9 pg (27.0-33.0) 10/04/19 06:40 MCHC 32.3 g/dL (32.0-36.0) 10/04/19 06:40 RDW 13.3 % (11.7-14.6) 10/04/19 06:40 Plt Count 299 x1000/uL (130-400) D 10/04/19 06:40 MPV 10.5 fL (8.0-11.0) 10/04/19 06:40 Sodium 144 mmol/L (136-145) 10/04/19 06:40 Potassium 3.7 mmol/L (3.5-5.1) 10/04/19 06:40 Chloride 110 mmol/L (98-107) H 10/04/19 06:40 Carbon Dioxide 26.1 mmol/L (21.0-32.0) 10/04/19 06:40 Anion Gap 7.9 mmol/L (3-11) 10/04/19 06:40 BUN 11 mg/dL (7-18) 10/04/19 06:40 Creatinine 0.65 mg/dL (0.55-1.02) 10/04/19 06:40 Estimated GFR/1.73 m2 >= 60.00 (mL/min/1.73m2) 10/04/19 06:40 Glucose 105 mg/dL (74-106) 10/04/19 06:40 Calcium 8.5 mg/dL (8.5-10.1) 10/04/19 06:40
--- NOTE | 2019-10-04 15:09 | PDOC.CMIN ---
- If Service Date Differs Date of service: 10/04/19 Time of Service: 15:09 Care Management Initial Assess REASON FOR HOSPITALIZATION:: Left hip replacement. 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 Kang and Gaby, Hyperlipidemia - Not on medication; states borderline, Increased body mass index, Psoriasis - Derm Consult 06/09/18: Controlled with methotrexate. 2.5% hydrocortisone cream ears & elbows, Retention of urine, Rosacea, Urticaria, and Uterine leiomyoma. Surgical History: Cervical Procedure - Endometrial Biopsy, Colonoscopy - IV Sedation, and HERNIA REPAIR - HIATAL. PREVIOUS FUNCTIONAL STATUS/SOCIAL/FAMILY SUPPORTS:: Estefany lives in an apartment in [place]. She has two sons but the youngest is . 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 She reports since retiring she spends her time at home reading, doing crossword puzzles, and going to breakfast with her friend, Anthony. Estefany drives and is independent with her ADLs at baseline. CURRENT FUNCTIONAL STATUS:: Estefany is lying in bed watching television when CM comes to meet with her. She is pleasant and easily engages in conversation. She talks about her elderly father who lives in [place] and who called to say he wishes he could come take care of her. She also shares her concerns of returning home as she must go up 13 stairs to get to her bedroom and bathroom, as both are on the second floor of her apartment. Estefany is agreeable to a short-term rehab stay while she recuperates from her surgery. ADVANCE DIRECTIVES:: On file; her son, Bayron Grajeda, is agent. Has patient been provided with information about the portal?: No Did the patient sign up for the portal?: No CODE STATUS:: Full Code INSURANCE COVERAGE / FINANCIAL ISSUES:: Medicaid. CURRENT HOME/COMMUNITY SERVICES/EQUIPMENT:: Estefany has a cane, crutches, raised toilet seat, shower chair, and a walker, but she is unsure if the walker has wheels. She currently has no community services, as she is independent at baseline. PRIMARY CARE PHYSICIAN:: JULIUS Bianchi ([facility]). POTENTIAL DISCHARGE NEEDS:: Follow-up appointment with PCP and Dr. Garcia, and short-term rehab. PATIENT/FAMILY EDUCATION NEEDS:: Discharge plan, limitations, plan of care, including Ask Me Three and self-management. ANTICIPATED BARRIERS TO DISCHARGE:: Both her bedroom and bathroom are on the second floor of her apartment. CM will coordinate short-term rehab stay while she recuperates. TRANSPORTATION:: To be determined. If Estefany is accepted at [facility], transportation will be via wheelchair van. PLAN:: Estefany will be discharged when medically cleared by provider. CM has coordinated referral to [facility] for a short-term rehab stay. CM continues to support Estefany and discharge planning needs.
[2019-10-04 15:45] VITALS: BP 120/79; PULSE 93; RESP 20; TEMP 36.7; O2SAT 98
--- NOTE | 2019-10-04 17:08 | PHARADMIT ---
Admission Pharmacy Clinical Review Post-op Left DJD Hip Code Status Full Code Current Weight Wgt-69.6 kg Renally Cleared and Narrow Therapeutic Index Meds CrCl~ 57.66 mL/min Meds-OK QTc Value / Action Taken none current BP Control, Fever BP-120/79 Tmax-37.0C Electrolytes reviewed Na-144 K+3.7 DVT Prophylaxis ASA Opiate Usage / Scheduled Bowel Regimen Ordered Yes Yes Plt/SCr for Heparin / Enoxaparin Plts- 299 SCr-0.65 INR for Warfarin na H/H stable, WBC/Bands H&H-10.6/32.8 WBC-7.37 Antibiotic appropriateness Ancef Pre & Post-op Cultures and Sensitivities none Surgical ABX d/c within 24 hr Yes DM control / Insulin Dosing BG-105 Heart Failure (Check EF%) (RICHARDSON's, B-Block, Diuretics) Atenolol IV to PO Switch No Home Meds Reviewed Yes Home Meds Not Ordered Abreva, Claritin, Lorazepam, MTX, Tramadol Comments
[2019-10-04 19:09] VITALS: BP 100/66; PULSE 90; RESP 18; TEMP 36.6; O2SAT 94
[2019-10-04 23:48] VITALS: BP 111/72; PULSE 83; RESP 20; TEMP 36.4; O2SAT 95
[2019-10-05 04:36] VITALS: BP 113/79; PULSE 83; RESP 16; TEMP 36.3; O2SAT 97
[2019-10-05 07:20] VITALS: BP 117/75; PULSE 103; RESP 18; TEMP 37; O2SAT 97
[2019-10-05] MEDS: Pantoprazole 40 MG TABCR PO (08:15)
[2019-10-05] MEDS: Atenolol 25 MG TAB PO (08:16)
[2019-10-05] MEDS: oxyCODONE 5 MG TAB PO (08:16)
[2019-10-05] MEDS: Acetaminophen 500 MG TAB 1000 MG PO (08:16)
[2019-10-05] MEDS: Celecoxib 200 MG CAP PO (08:16)
[2019-10-05] MEDS: Folic Acid 1 MG TAB PO (08:17)
[2019-10-05] MEDS: Aspirin E.C. 81 MG TABEC PO (08:17)
--- NOTE | 2019-10-05 10:40 | W.PM.DS.N ---
Date of service: 10/05/19 Time of Service: 10:41 DS: Diagnosis Discharge Diagnosis (1) Degenerative joint disease of left hip: Status: Chronic Asessment and Plan: Estefany is doing well after left anteior total hip arthroplasty. She did suffer an intraoperative fracture which was fixed with cables. She has been able to mobilize but would benefit from a short long-term facility stay prior to home discharge. Discharge Plan Disposition Patient Disposition: SNF (LEVEL 1) [facility] Condition: Improving Discharge Details Reason For Visit: LEFT HIP DJD Admit Date/Time: 10/03/19 05:50 Admit Provider: Kendrick Garcia Attending Provider: Kendrick Garcia Primary Care Provider: Jenny Moody Hospital Course Hospital Course: Estefany is a 64yo with severe bilateral hip arthritis. She had been seen for these symptoms and desired to proceed with a left anterior total hip arthroplasty. Estefany was admitted to the medical/surgical floor following the procedure. It was tolerated well although there was an intraoperative fracture which required cabling to secure. There were no other medical or anesthetic complications. Mobilization began postoperatively using an assistive device at all times. The flood catheter was removed and voiding spontaneously. Vitals were stable. Physical therapy worked with the patient and was deemed a candidate for long-term facility discharge prior to safely going home. No acute medical issues. Home Meds and New Rx's Prescriptions: New acetaminophen 500 mg tablet 1,000 mg PO Q8H PRN (Reason: pain) Qty: 90 RF: 3 pantoprazole 40 mg tablet,delayed release (DR/EC) 40 mg PO DAILY Qty: 30 RF: 0 tramadol 50 mg tablet 50 mg PO Q6H PRN (Reason: pain) Qty: 20 RF: 0 Continued methotrexate sodium 2.5 mg tablet 10 mg PO one day a week RF: 0 celecoxib [Celebrex] 200 mg capsule 200 mg PO BID Qty: 60 RF: 3 lorazepam [Ativan] 0.5 mg tablet 0.5 mg PO HS PRN (Reason: sleep) Qty: 30 RF: 0 folic acid 1 MG tablet 1 mg PO 6 days weekly RF: 0 atenolol 50 mg tablet 25 mg PO DAILY Qty: 45 RF: 3 Discontinued tramadol 50 mg tablet 50 mg PO BID PRN (Reason: pain, moderate) Qty: 14 RF: 1 docosanol [Abreva] 2 GM cream 2 gm Topical Q3H PRN Qty: 1 RF: 1 loratadine [Claritin] 10 MG tablet 10 mg PO DAILY PRNRF: 0 No Action (DME) Hospital Bed Qty: 1 RF: 0 Discharge Instructions Additional Instructions: Dr. Garcia?s Total Hip Discharge Instructions Activity: The most important activity is to walk. You should try to take short walks a few times a day. You have no restrictions on movement or positioning, but do not try to force what you do. You will find some stiffness and weakness with hip flexion (lifting your knee). Do not try to strengthen this too early, continue to practice walking and stairs and this will come. You should use a walker or crutches at all times until instructed by Dr. Garcia. This is to offload the left hip since you had a fracture. - You should wear the KIRT hose on both legs for 2 weeks. Dressing: Keep the surgical dressing in place for at least one week. After the first week it may be removed and replace with light gauze and tape or nothing. It may get wet after 3 days but avoid soaking the dressing. If it gets wet, just lightly pat dry. It is important to always keep some gauze between skin folds, especially when you are sitting. Spend some time with the wound exposed when you are lying flat as the incision does wrinkle onto itself. Medications: - You should take Tylenol and an anti-inflammatory Celebrex as your primary pain control medications - You have been prescribed a stronger pain medication Tramadol for breakthrough pain, take as needed as prescribed. - You have also been prescribed a stomach acid reduction agent Pantoprozole to help reduce stomach acid and reflux. - You will be taking Aspirin 81mg twice a day for DVT prevention unless instructed otherwise. - If you have constipation you should take Colace or Miralax (both [id number]). It takes most people 3-4 days to have a bowel movement. Follow-up: 2 weeks Stand Alone Forms: Nursing Discharge Form Referrals: Kendrick Garcia MD [ [facility] STAFF PHYSICIAN] - 10/22/19 3:30 pm Activity:: Activity as Tolerated Equipment/Supplies:: Walker Diet:: As Tolerated Discharge Orders Discharge Orders: Discharge Order (Routine); Ordered 10/05/19 Ordered By: Kendrick Garcia Discharge Data Discharge Date/Time-TO BE ENTERED AT DEPARTURE: 10/05/19 13:20 DS: Summary Status at Discharge Functional status at discharge: uses cane/walker Overall status at discharge: patient is progressing back to baseline Mental Status: mental status grossly normal Speech and Movement: speech and movement normal Mood: congruent mood Affect: normal affect Exam Psych Mental Status: mental status grossly normal Speech and Movement: speech and movement normal Mood: congruent mood Affect: normal affect DS: Data Vitals/I&O Vitals and I&O: Vital Signs Temperature 37.0 C 10/05/19 07:20 Temperature Source Tympanic 10/05/19 07:20 Pulse 103 H 10/05/19 07:20 Pulse Rhythm Regular 10/04/19 23:48 Respiratory Rate 18 10/05/19 07:20 Respiratory Effort 10/04/19 23:48 Respiratory Depth Normal 10/04/19 23:48 Respiratory Pattern Normal 10/04/19 23:48 Blood Pressure 117/75 10/05/19 07:20 Pulse Oximetry 97 10/05/19 07:20 Respiratory End-tidal CO2 31 10/03/19 12:32 Oxygen Delivery Method Room Air 10/05/19 07:20 Oxygen Flow Rate 0 10/05/19 07:20 Pain Level 0 10/05/19 08:16 Intake & Output 10/04/19 10/04/19 10/05/19 11:59 23:59 11:59 Intake Total 1200 / 2980 1780 / 2980 480 / 480 Output Total 1200 / 2300 1100 / 2300 1650 / 1650 Balance 0 / 680 680 / 680 -1170 / -1170 Intake: IV 1000 / 2000 1000 / 2000 Oral 200 / 980 780 / 980 480 / 480 Output: Urine 1200 / 2300 1100 / 2300 1650 / 1650 Other: Urine Color Yellow Yellow Yellow Urine Appearance Clear Clear Clear [facility] Medical History Anxiety (Chronic 09/01/17) Asthma (Suspected) does not use inhalers Cyst of joint of left hand (Suspected 11/29/17) Cystocele, midline (Chronic) Degenerative joint disease of left hip (Chronic) s/p Anterior CARMEN (10/03/19) with intraoperative fracture Degenerative joint disease of right hip (Chronic) Essential hypertension (Chronic 01/07/14) Glaucoma (Chronic) 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 Kang and Gaby Hyperlipidemia (Chronic) Not on medication; states borderline Increased body mass index (Acute 01/07/14) Psoriasis (Chronic 06/12/18) Derm Consult 06/09/18: Controlled with methotrexate. 2.5% hydrocortisone cream ears & elbows. Retention of urine (Acute) Rosacea (Acute) Urticaria (Acute 01/07/14) Uterine leiomyoma (Resolved) Surgical History Cervical Procedure (07/17/12) Endometrial Biopsy Colonoscopy - IV Sedation (10/06/11) HERNIA REPAIR HIATAL Family History Mother , 72 Essential hypertension Heart disease Hyperlipidemia Brain aneurysm Father Heart disease Pacemaker Asthma Sister No problems noted. Brother No problems noted. Brother No problems noted. Maternal Grandfather Heart disease Paternal Grandfather Heart disease Myocardial infarction Stroke Maternal Grandmother Breast cancer Paternal Grandmother Diabetes Son No problems noted. Son , 26 - suicide No problems noted. Social History Smoking/Tobacco Use Status: Never Alcohol Intake: current Alcohol Intake frequency: other Drug use: Never Substance use type: does not use Caregiver/Support person: No Household members: none Housing: apartment Pets and animals: No Sexually active: No Do you think of yourself as: straight/heterosexual Current gender identity: female What is your relationship status?: How often do you talk on the phone with friends or family?: three or more times per week How often do you get together with friends or relatives?: three or more times per week How often do you attend hinduism or nondenominational services?: decline to answer Do you belong to any clubs or organized social groups?: no Panel score (0-1 are the most socially isolated patients): 1 What type of physical activity do you participate in: walking Duration: 15-30 minutes/day Frequency: daily Claire/Christianity: Gnosticist Special claire needs: No
--- NOTE | 2019-10-05 10:52 | PT.INTREAT ---
Date of service: 10/05/19 Time of Service: 10:52 PT Notes Visit Reasons: LEFT HIP DJD Inpatient Physical Therapy Treatment Note [facility] Date: 10/05/19 PRECAUTIONS: Fall, WBAT L SUBJECTIVE: Estefany is agreeable to participating in PT. She reports that she has had some increased soreness in her left hip and buttock area today versus the past several days. OBJECTIVE: PAIN: Patient complains of left hip discomfort with ther ex and gait training BED MOBILITY/TRANSFERS Supine-sit: I Sit-stand: SBA Stand-sit: SBA GAIT Assistive Device: FWW Weight bearing: WBAT L Assist: SBA Distance: 200' Deviation: Cueing for step-through gait pattern and continuous FWW advancement, toeing-in on L THEREX: Patient completed a lower extremity strengthening and stabilization program, in both seated and long?sit positions, as per flow sheet. ASSESSMENT: Patient tolerated session well, with complaint of increased left hip discomfort with ther ex and gait training. She would benefit from continued gait and transfer training as well as continued strengthening for improved mobility and improved ability to perform daily functional tasks at a more independent level. PLAN: Continue with PTs POC TREATMENT CODE/TIME: 25 minutes; 13321, [id number]
--- NOTE | 2019-10-05 12:58 | INDS_ITS ---
Date of service: 10/05/19 Time of Service: 12:58 PT Notes Visit Reasons: LEFT HIP DJD Inpatient Physical Therapy Discharge Summary Dates: 10/05/2019 Dates of Service: 10/03/2019 through 10/05/2019 This is a clinical summary of care provided on the duration of dates listed above. No charge was made in the completion of this documentation. Referring Doctor: Kendrick Garcia MD PT Orders: PT CONSULT: Status post Ortho surgery. Status post left anterior CARMEN Precautions: Fall. Standard. Left eye blind. WBAT on left LE. Patient Profile/Admitting Diagnosis: Patient is a 64-year-old female with degenerative joint disease of the left hip and is status post left anterior total hip arthroplasty with cable fixation of intraoperative fracture on postoperative day 2. 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 Kang and Gaby Hyperlipidemia (Chronic) Not on medication; states borderline Increased body mass index (Acute 01/07/14) Psoriasis (Chronic 06/12/18) Derm Consult 06/09/18: Controlled with methotrexate. 2.5% hydrocortisone cream ears & elbows. Retention of urine (Acute) Rosacea (Acute) Urticaria (Acute 01/07/14) Uterine leiomyoma (Resolved) Surgical History Cervical Procedure (07/17/12) Endometrial Biopsy Colonoscopy - IV Sedation (10/06/11) HERNIA REPAIR HIATAL Social History/Home Situation: Patient lives alone in an apartment with 2 floors and 2 steps to enter without rails. She has 13 steps to the second floor where her bedroom is. She elaborates that Dr. Garcia's team is working on processing a hospital bed for her at home and on providing certification that she will need rails on the entrance steps to maximize safety and mobility ADL performance. She has a friend who helps with groceries. She does well with frozen dinners. She is independent with ambulation using a single-point cane for the past 2 months prior to surgery as it was getting harder to walk due to arthritis. Prior to 2 months she was independent with all ambulation activities without the need for an assistive device. She has a son who lives close by but does not have a car. The laundry area is in a separate building and she has struggled to do this for the past several months as she needed to carry her laundry while walking on snow with her cane. 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 Equipment Owned/DME: [facility] Subjective: NT. Please refer to RECREATION COORDINATOR notes dated today, 10/05/2019. Objective: General Observation: NT. Please refer to RECREATION COORDINATOR notes dated today, 10/05/2019. Mental Status:NT. Please refer to RECREATION COORDINATOR notes dated today, 10/05/2019. Pain:NT. Please refer to RECREATION COORDINATOR notes dated today, 10/05/2019. ROM: Right Upper Extremity: Shoulder Flexion WFL. Shoulder abduction WFL. Elbow flexion WFL. Wrist flexion WFL. Opening and closing of hand WFL. Left Upper Extremity: Shoulder Flexion WFL. Shoulder abduction WFL. Elbow flexion WFL. Wrist flexion WFL. Opening and closing of hand WFL. Right Lower Extremity: Hip flexion WFL. Hip abduction WFL. Knee flexion WFL. Ankle dorsiflexion WFL. Ankle plantarflexion WFL. Left Lower Extremity: Hip flexion WFL. Hip abduction WFL. Knee flexion WFL. Ankle dorsiflexion WFL. Ankle plantarflexion WFL. Strength: Right Upper Extremity: Shoulder flexors 5/5. Shoulder abductors 5/5. Elbow flexors 5/5. Elbow extensors 5/5. [place] Artist strong. Left Upper Extremity: Shoulder flexors 5/5. Shoulder abductors 5/5. Elbow flexors 5/5. Elbow extensors 5/5. [place] Artist strong. Right Lower Extremity: Hip flexors 5/5. Hip abductors 5/5. Knee flexors 5/5. Knee extensors 5/5. Ankle dorsiflexors 5/5. Ankle plantarflexors 5/5. Left Lower Extremity:Hip flexors 3+/5. Hip abductors 3+/5. Knee flexors 3+/5. Knee extensors 3+/5. Ankle dorsiflexors 5/5. Ankle plantarflexors 5/5. Sensation: Intact as to pain and pressure on bilateral lower extremities. Bed Mobility/Transfers: Rolling independent Supine to sit independent Sit to supine independent Sit to stand SBA Stand to sit SBA Bed to chair SBA Chair to bed SBA Gait: Patient tolerated level surface ambulation of 200 feet using front wheel walker requiring SBA with step through gait pattern. Left hip internal rotation and toeing continues to be observed. Asymmetric step height and length as well as decreased jennifer noted however patient did not complain of increased pain with weight bearing. Balance: Static Sitting: Normal Dynamic Sitting: Normal Static Standing: Fair Dynamic Standing: Fair Assessment: Patient is a 64-year-old female with degenerative joint disease of the left hip and is status post left anterior total hip arthroplasty with cable fixation of intraoperative fracture on postoperative day 0 now presenting with findings and functional limitations as listed below. Her home environment is not handicap accessible but per patient, care management and Dr. Garcia's team are working on ensuring that needed documentation and certification are provided to Estefany's landlord to facilitate renovations that will reduce fall risk at [facility]. She may need assistance with doing her laundry as the the laundry area is in a separate building and she has to walk on snow while cvarrying her laundry to get there. She is pleasant and cooperative. She is motivated to return to prior level of function. Her prognosis for regaining previous mobility level is fair. Patient continues to present with clinical signs and symptoms consistent with current/admitting diagnoses that have resulted to mobility limitations, gait instability, generalized weakness, and impairment of motor control as demonstrated by the following impairment level findings: 1. Decreased strength to right hip and knee major muscle groups 2. Impaired standing balance 3. Impaired activity tolerance Impairments continue to contribute to the following functional limitations: 1. Inability to safely ambulate without assistive device and physical assistance 2. Increase completion time for mobility ADL performance 3. Increased fall risk 4. Inability to negotiate steps alone safely Goals: Goals X1 week 1. Supine-Sit independent MET 2. Sit-Supine independent MET 3. Sit-Stand independent MET 4. Stand-Sit independent NOT MET 5. Bed-Chair independent NOT MET 6. Chair-Bed independent NOT MET 7. Independent gait on level surface with use of least restrictive device for at least 300 feet without report of pain nor dyspnea NOT MET 8. Independent stair negotiation while holding onto bilateral rails for at least 10 steps without report of pain nor dyspnea NOT MET 9. Independent with home exercise program NOT MET 10. Good static and dynamic standing balance/tolerance NOT MET DISCHARGE RECOMMENDATIONS: Patient will benefit from fdc facility placement for continued skilled physical therapy services in order to progress mobility level, strength, and balance in preparation for a safe discharge to home. Equipment recommendations include hospital bed, front wheeled walker, and raised toilet seat. Installation of grab bars as well as bilateral rails on the entrance steps will reduce fall risk. Patient will require home health PT services once discharged to home in order to reassess safety of home modifications that are planned to be done prior to discharge. TREATMENT CODE/TIME: NC. Thank you very much for this referral. Darlin Kelley PT, DPT, CLT [facility] [place], [place]
--- NOTE | 2019-10-05 15:08 | CMDISCH_ITS ---
LACE Index Scoring Tool - Questions: Length of Stay (in days): 2 Acuity (Admit via E.D.?): Yes E.D. Visits: 0 - Answers: Total Score: 5 Risk of Readmission: Low Risk Care Management Discharge Reason for Hospitalization: Left hip replacement. Discharge Plan: Estefany will discharge to [facility] for continued rehab prior to returning home. She will transport via the facility's wheel chair van. Patient/Family Education Needs: Review discharge instructions, discuss Ask Me Three. Services Needed at Discharge: Senior Care Facility ([facility]), Transportation ([facility] wheelchair van )
== END 2019-10-05 13:20 | disposition skilled nursing facility (03) | DRG 470 ==
LOC: PDS 05:51 → MS 11:33
PROVIDERS: Admitting Provider Student in an Organized Health Care Education/Training Program; Visit Provider Student in an Organized Health Care Education/Training Program
PROC: 0SRB04A Replacement of Left Hip Joint with Ceramic on Polyethylene Synthetic Substitute, Uncemented, Open Approach (ICD-10-PCS; CPT 27130; principal; 2019-10-03 07:30)
DX: M16.12 Unilateral primary osteoarthritis, left hip (principal); M96.89 Other intraoperative and postprocedural complications and disorders of the musculoskeletal system; M97.02XA Periprosthetic fracture around internal prosthetic left hip joint, initial encounter; M25.552 Pain in left hip; Z96.642 Presence of left artificial hip joint; Y83.8 Other surgical procedures as the cause of abnormal reaction of the patient, or of later complication, without mention of misadventure at the time of the procedure; I10 Essential (primary) hypertension; F41.9 Anxiety disorder, unspecified; E66.3 Overweight; Z68.28 Body mass index [BMI] 28.0-28.9, adult; Z71.3 Dietary counseling and surveillance
CPT/HCPCS: 27130; 27244; 36415; 80048; 85027; 97110; 97162; 97530; NC; 73501; J0690; J1100; J1885; J2250; J2370; J2405; J3010

== ENCOUNTER 2019-10-22 15:34 | Outpatient (CLI) | payer MEDICAID, SELFPAY ==
--- NOTE | 2019-10-22 15:54 | DI.RAD_ITS ---
EXAM: XR HIP LT AP LAT ONLY INDICATION: 1ST POST OP. COMPARISON: XR HIP LT COMPLETE AP PELVIS from 08/06/2019 XR HIP LT IN OR from 10/03/2019 TECHNIQUE: 2D digital imaging was performed. FINDINGS: There has been no change in the appearance of the left total hip prosthesis or surrounding bone.
== END 2019-10-22 15:54 ==
PROVIDERS: Visit Provider Student in an Organized Health Care Education/Training Program
DX: Z96.642 Presence of left artificial hip joint (principal); Z47.1 Aftercare following joint replacement surgery
CPT/HCPCS: 73502

== ENCOUNTER 2019-11-02 01:15 | Outpatient (CLI) | payer MEDICAID, SELFPAY ==
[2019-11-02 07:52] LABS: HCT 41.9 % (36.0-46.0); HGB 13.5 g/dL (12.0-15.5); Mean Corp. HGB Concentration 32.2 g/dL (32.0-36.0); Mean Corpuscular Hemoglobin 31.3 pg (27.0-33.0); Mean Platelet Volume 10.3 fL (8.0-11.0); Platelet Count 334 x1000/uL (130-400); RBC 4.32 m/cumm (4.00-5.20); RBC Distribution Width 13.9 % (11.7-14.6)
[2019-11-02 08:39] LABS: Anion Gap 9.5 mmol/L (3-11); BUN 9 mg/dL (7-18); CO2 26.5 mmol/L (21.0-32.0); CREATININE 0.63 mg/dL (0.55-1.02); Calcium 9.2 mg/dL (8.5-10.1); Chloride 109 mmol/L (98-107); Glucose 99 mg/dL (74-106); Potassium 4.1 mmol/L (3.5-5.1); Sodium 145 mmol/L (136-145)
[2019-11-02 09:21] LABS: ALT 35 U/L (14-59); AST 19 U/L (15-37)
[2019-11-02 09:23] LABS: Cholesterol 212 mg/dL (<200); Triglyceride 117 mg/dL (<150)
== END 2019-11-02 01:35 ==
PROVIDERS: Dermatology; Visit Provider Student in an Organized Health Care Education/Training Program
DX: L40.0 Psoriasis vulgaris (principal); Z79.899 Other long term (current) drug therapy; M25.551 Pain in right hip; M16.11 Unilateral primary osteoarthritis, right hip; J44.9 Chronic obstructive pulmonary disease, unspecified; Z01.818 Encounter for other preprocedural examination; Z01.812 Encounter for preprocedural laboratory examination
CPT/HCPCS: 36415; 80048; 85027; 86850; 86900; 86901; 82465; 84450; 84460; 84478

== ENCOUNTER 2019-11-06 05:54 | Inpatient (IN) | payer MEDICAID, SELFPAY ==
--- NOTE | 2019-10-31 11:17 | NUR.NOTE ---
Addendum entered by Humberto Browne 10/31/19 11:22: 10/31: pt stated she is coming in tuesday11/02/19 to have labs drawn. Original Note: 10/31/19: spoke with Ele Guadalupe in care management per pt. request to go over to [facility] after R THR, Ele stated she will initiate the process with pt. and insurance. Nursing Note:
[2019-11-06] VITALS (13 sets, daily range): BP systolic 80–135; BP diastolic 52–80; PULSE 49–113; RESP 14–21; TEMP 36.1–36.8; O2SAT 94–100
[2019-11-06] MEDS: Lactated Ringers 1,000 ML 80 ML IV ×2 (06:50→11:28)
[2019-11-06] MEDS: Acetaminophen 500 MG TAB 1000 MG PO ×3 (06:54→21:02)
[2019-11-06] MEDS: Celecoxib 200 MG CAP 400 MG PO (06:54)
[2019-11-06] MEDS: ceFAZolin 2 GM/50 ML BAG IVPB (07:32)
--- NOTE | 2019-11-06 08:36 | DI.RAD_ITS ---
EXAM: XR HIP RT IN OR CLINICAL HISTORY: DJD RIGHT HIP TECHNIQUE: 2D and realtime digital imaging was performed. Fluoroscopy was provided in the OR COMPARISON: No exams were available for comparison FINDINGS: C-arm fluoroscopy was utilized by Dr. Garcia during right hip replacement. Hard copy shows femoral and acetabular components in good position. IMPRESSION:
[2019-11-06] MEDS: Bupivacaine 0.25% Pres-Free 30 ML VIAL (09:18)
[2019-11-06] MEDS: Ketorolac 30 MG/ML VIAL (09:18)
--- NOTE | 2019-11-06 11:25 | W.PM.OP ---
Date of service: 11/06/19 Time of Service: 09:32 Operative Note Operative Note DATE OF PROCEDURE: 11/06/19 PRE-OP DIAGNOSIS: Right Hip Osteoarthritis POST-OP DIAGNOSIS: same PROCEDURE: Right Anterior Total Hip Arthroplasty SURGEON: Kendrick Garcia IMPLEMENTATION LEAD: Jesus Haromn ANESTHESIA: spinal ESTIMATED BLOOD LOSS: 300 PATHOLOGY: none sent COMPLICATIONS: None Patient was transported to: PACU Patient's condition: stable Implants: 1. Depuy [place] Acetabular Component, 52mm 2. Depuy Acetabular Liner, [id number] 3. Depuy Corail Standard Collared Femoral Stem, Size 12 4. Depuy Altrx Ceramic Femoral Head, Size 36+1.5mm Indications: I have seen Estefany in clinic for symptoms of hip arthritis, confirmed with radiographic findings. Estefany has exhausted nonoperative methods and was having significant limitations in daily function and desired better function and less pain. She had a hip replacement on the right side over a month ago which was complicated by intraoperative fracture but has done well. I discussed the technical details of a hip replacement. I explained the risks of the procedure to include, but not limited to, bleeding, infection, pain, stiffness, fracture, damage to nerves and vessels, damage to muscles and tendons, loosening, instability, leg length inequality, need for repeat procedure, blood clot and cardiopulmonary demise. Despite these risks, Estefany elected to proceed. Findings: There was significant signs of arthritis throughout the hip with osteophytes around the femoral neck and the acetabulum. Procedure Description: Estefany was greeted in the preoperative holding area where the correct side was identified and marked. The consent was reviewed with the patient and signed. The history and physical was updated. All questions were answered. Estefany was taken back to the operating room. A spinal anesthestic was then administered. The patient was placed into the supine position on the operating room table. The patient was then positioned onto the ARCH table. Both feet were wrapped with Webrill cotton wrap along with Coban. The feet were placed in specialized boots for the ARCH table, well seated within the boot and secured. SCDs were applied. The patient was then slid down onto a peroneal post and the nonoperative leg was secured in a leg allen attached to the table. The operative side was placed into the ARCH table attachment and bed height and positioning was secured. A preoperative AP pelvis was obtained to serve as a reference for determining leg lengths. Prophylactic antibiotics in the form of Cefazolin were administered. 1g of Tranxemic Acid was given intravenously within 30 minutes of incision. The right leg was then prepped with Chloraprep and draped in a standard fashion. A second prep with Chloraprep was performed prior to placement of a shower-curtain type drape with Iodine impregnated skin protection. A timeout to confirm correct identity, side and site, procedure, allergies, anesthesia, and medical concerns was performed. An obliquely oriented incision was made starting lateral to the ASIS and running distal over the Tensor Fascia Dorita (TFL) muscle belly toward the fibular head, approximately 10cm. The skin and soft tissue was dissected sharply, through Dennise?s fascia, and to the fascia of the TFL. With the fascia and superior border of the IT band identified, the fascia was incised with a new knife just above any perforators from the IT band. The TFL muscle belly was bluntly dissected away from the fascia and moved laterally. The fat between TFL and rectus was identified to ensure the dissection was not within the TFL. Blunt dissection created space between abductors and the capsule and retractor was placed over the lateral femoral neck. The fibers of the rectus femoris tendon were identified and these were freed from the anterior capsule. A second cobra retractor was placed around the medial femoral neck. The TFL was further retracted laterally to show the deep fascia. Careful dissection through this layer identified three main crossing vessels of the lateral femoral circumflex. These were cauterized in multiple locations and then cut without any noticeable bleeding. The TFL was further released bluntly from the deep fascia to expose anterior hip capsule and fat The Akin orthopaedic retractor was then placed beneath the TFL and against sartorius and medial soft tissues to protect and retract the soft tissues. A T-capsulotomy was then performed starting at the superior lateral acetabulum and moving distally to the intertrochanteric ridge. These capsular flaps were tagged with a No. 1 Ethibond and elevated from within. The capsular flaps were released to the shoulder of the lateral neck and to the lesser trochanter to give excellent visualization of the proximal femur. A neck osteotomy was performed using an oscillating saw based on preoperative templates. This cut started in the shoulder and of the lateral neck and exited medially. The saw was at all times directed medially to avoid injury to the greater trochanter. 6cm of traction was applied to the leg and the osteotomy opened. The femoral head was removed with a corkscrew, making sure to protect the TFL on its exit. This was measured on the back table to determing the starting reamer size. Portions of the rectus obscuring visualization were minimally elevated off the superior acetabulum. An anterior retractor was placed over the anterior wall between capsule and labrum and attached to the Gripper retraction system. A posterior retractor was placed similarly. This provided excellent visualization. The contents of the cotyloid fossa were removed with electrocautery and the labrum was removed with a knife. There was a notable floor osteophyte. There was significant chondromalacia of the superior acetabulum. Acetabular reaming began with a 48mm reamer. This first reaming was directed anterior to posterior and medial to get down to the true floor. This was inspected and reamed until the true floor was reached. I then reamed sequentially up to a 52mm reamer where good fit was obtained. There was some alteration of the superior-lateral acetabulum due to the hip arthritis. The fit was focused on the deeper rim. The larger reamers were oriented based on anatomical reference of the anterior and lateral malloy to ensure proper abduction and anteversion. Positioning and size was confirmed with the fluoroscopy. A 52mm Depuy [place] acetabular component was selected. The acetabulum was reamed around the periphery with the selected acetabular size to prevent a rim fit. The deep tissues were irrigated. The acetabular component was then impacted in a position of about 40-45 degrees of abduction and 15-20 degrees of anteversion, using the patient?s anatomy as the ultimate landmark. Fluoroscopy was used to confirm this. There was excellent sales and management trainee of the acetabular component and the inserting handle was removed. A primary acetabular screw was placed into the ilium by drilling through one of the holes in the acetabular component. This was measured and an approrpriately sized screw was placed with excellent purchase. It was checked not to be proud. The acetabular liner, Depuy [id number] polyethylene liner, was inserted and lined up with the tines of the acetabular component. There was no soft tissue interposition. The liner was then impacted into position and confirmed to be well-seated. A portion of the otis-articular cocktail was then injected around the acetabulum into the capsule and periosteum. This cocktail consisted of 50cc of 0.25% Bupivicaine and 20cc of Exparel, expanded to a total of 120cc. Traction was released from the femur. The leg was rotated to 120 degrees. Any remaining medial capsule was released until the lesser trochanter was easily palpable. A Dorantes retractor was placed medially. The lateral capsule was further released into the shoulder to allow access to the greater trochanter. A Dorantes retractor was placed over the greater trochanter which allowed the trochanter to flip in front of the capsule for excellent exposure. The leg was brought down into maximal extension and 20 degrees of adduction while ensuring there was no impingement on the acetabulum. Any remnant capsule within the trochanter was released. Piriformis and obturator externis were identified and protected. There was excellent access to the proximal femur. The lateral neck remnant was removed with a rongeur. A blunt canal probe was used to identify the canal and trajectory for later broaching. A box osteotome initiated the broach course. A small curved rasp and a curved curette were used to work laterally. Broaching then began with a size 8 Corail broach. This was inserted manually around the trochanter and into the canal before mallet blows. The broach was seated to a few millimeters below the cut level based on the neck cut and the preoperative template. Sequential broaching was continued until a tight fit was obtained with good rotational control of the femur. A trial standard neck was inserted along with a 36+1.5 trial head. The leg was brought out of extension and adduction and then reduced with traction and internal rotation. The leg was stable anteriorly in a position of 30 degrees of extension and 90 degrees of external rotation. Fluoroscopy was used to ensure there was no fracture and the stem was seated well. Leg lengths were checked with an AP pelvis and pelvic reference points. Once content with the desired offset and leg lengths, the leg was brought back into extension, external rotation and adduction. The periosteum and surrounding tissue was injected with remaining portion of the otis-articular cocktail. The proximal femur was irrigated as well as the deep tissues. The Depuy Corail standard collared stem, size 12, was then manually inserted into the proximal femur making sure to control rotation. It was then malleted into position with light blows, giving breaks to allow bone expansion and decrease risk of fracture. The selected Depuy Altrx Ceramic Head, size 36+1.5mm, was then placed onto the clean and dry trunnion and secured with impaction onto the tapered fit. The leg was brought back out of extension and adduction and reduced with traction and internal rotation. Stability was confirmed with no shuck at 90 degrees of external rotation and 30 degrees of extension. No impingement through range of motion arc. Final x-ray images were obtained with fluoroscopy to confirm adequate positioning and no intraoperative fracture. The deep tissues were thoroughly irrigated with a pulse lavage. The second dose of TXA 1g was administered intravenously.The capsule was then reapproximated with the previously placed Ethibond sutures. The TFL fascia was finally closed with a No. 2 Stratafix, barbed suture. Deep tissues were then reapproximated with 0 Vicryl and a running 2-0 Vicryl. The skin was closed with a running 4-0 Monocryl in a subcuticular fashion. This was reinforced with skin glue. A Mepilex silver dressing was applied. At the end of the case, all counts were correct. Estefany was transferred to the hospital bed without difficulty and suffering no apparent complication. Estefany has a good prognosis. Physical therapy will start today and without restrictions, weight-bearing as tolerated. Aspirin 81mg BID will be used for DVT prophylaxis.
[2019-11-06] MEDS: ceFAZolin 1 GM/50 ML BAG IVPB ×2 (14:24→21:06)
--- NOTE | 2019-11-06 15:39 | PT.INIE ---
Date of service: 11/06/19 Time of Service: 13:10 PT Notes Visit Reasons: RIGHT HIP DJD PT Inpatient Initial Evaluation Date: 11/06/2019 Referring Doctor: Kendrick Garcia MD PT Orders: PT CONSULT: Status post Ortho surgery. Status post right anterior CARMEN Precautions: Fall. Standard. Left eye blind. WBAT on left LE. Patient Profile/Admitting Diagnosis: Patient is a 64-year-old female with degenerative joint disease of the right hip and is status post right anterior total hip arthroplasty on postoperative day 0. She had a recent left total hip arthroplasty with cable fixation of intraoperative fracture on 10/03/2019. 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 Kang and Gaby Hyperlipidemia (Chronic) Not on medication; states borderline Increased body mass index (Acute 01/07/14) Psoriasis (Chronic 06/12/18) Derm Consult 06/09/18: Controlled with methotrexate. 2.5% hydrocortisone cream ears & elbows. Retention of urine (Acute) Rosacea (Acute) Urticaria (Acute 01/07/14) Uterine leiomyoma (Resolved) Surgical History Cervical Procedure (07/17/12) Endometrial Biopsy Colonoscopy - IV Sedation (10/06/11) HERNIA REPAIR Social History/Home Situation: Patient lives alone in an apartment with 2 floors and 2 steps to enter without rails. She has 13 steps to the second floor where her bedroom is. She elaborates that Dr. Garcia's team is working on processing a hospital bed for her at home and on providing certification that she will need rails on the entrance steps to maximize safety and mobility ADL performance. She has a friend who helps with groceries. She does well with frozen dinners. She was independent with ambulation using a single-point cane for 2 months prior to surgery on L hip. Prior to using cane she was independent with all ambulation activities without the need for an assistive device. She has a son who lives close by but does not have a car. The laundry area is in a separate building and she has struggled to do this for the past several months as she needed to carry her laundry while walking on snow with her cane. 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 Equipment Owned/DME: SPC, rollator. Subjective: Pt reports that she is not experiencing any pain in her L or R hip. She notes slight pain in her L shoulder. She reports that she discussed going to a short-term rehab following surgery with Dr. Garcia in order to fully recover prior to going home. Objective: General Observation: Blind in L eye, IV in R UE, flood catheter in place, Meoilex Ag over surgical incision Mental Status: Alert and oriented x4 Pain: 0/10 pain in L and R hips Vitals: Supine: BP 135/88 mmHg, HR 96 bpm, SpO2 99% Sitting: BP 149/98 mmHg, HR 105 bpm, SpO2 98% Standing: BP 127/88 mmHg, HR 111 bpm, SpO2 98% ROM: Right Upper Extremity: Shoulder Flexion WFL. Shoulder abduction WFL. Elbow flexion WFL. Wrist flexion WFL. Opening and closing of hand WFL. Left Upper Extremity: Shoulder Flexion WFL. Shoulder abduction WFL. Elbow flexion WFL. Wrist flexion WFL. Opening and closing of hand WFL. Right Lower Extremity: Hip flexion 130 degrees. Hip abduction WFL. Knee flexion WFL. Ankle dorsiflexion WFL. Ankle plantarflexion WFL. Left Lower Extremity: Hip flexion WFL. Hip abduction WFL. Knee flexion WFL. Ankle dorsiflexion WFL. Ankle plantarflexion WFL. Strength: Right Upper Extremity: Shoulder flexors 5/5. Shoulder abductors 5/5. Elbow flexors 5/5. Elbow extensors 5/5. Ophthalmic Medical Technologist strong. Left Upper Extremity: Shoulder flexors 5/5. Shoulder abductors 5/5. Elbow flexors 5/5. Elbow extensors 5/5. Ophthalmic Medical Technologist strong. Right Lower Extremity: Hip flexors 3-/5. Hip abductors 3+/5. Knee flexors 4/5. Knee extensors 4+/5. Ankle dorsiflexors 5/5. Ankle plantarflexors 5/5. Left Lower Extremity: Hip flexors 3-/5. Hip abductors 5/5. Knee flexors 4+/5. Knee extensors 4+/5. Ankle dorsiflexors 5/5. Ankle plantarflexors 5/5. Sensation: Intact as to pain and pressure on bilateral lower extremities. Bed Mobility/Transfers: Rolling independent Supine to sit independent Sit to supine independent Sit to stand SBA Stand to sit SBA Bed to chair SBA Chair to bed SBA Gait: Patient tolerated level surface ambulation of 75 feet using front wheel walker requiring CGA of this PT and wheelchair follow of PT student with step to gait pattern. Asymmetric step height and length. Pt did not complain of increased pain with weight bearing. Balance: Static Sitting: Normal Dynamic Sitting: Normal Static Standing: Fair Dynamic Standing: Fair Special Tests: Mobility Limitations Standardized Measure [facility] AM-PAC 6 clicks Basic Mobility Inpatient Short Form: Raw Score: 22 CMS Score: 21% deficit Informed Consent/Education: Patient instructed in purpose of PT consult and plan of care. Patient was also instructed with hourly performance of gluteal exercises x10 reps and ankle pumping x 20 to be done on her own on top of skilled PT services that she will be getting while on admission. Assessment: Patient is a 64-year-old female with degenerative joint disease of the right hip and is status post right anterior total hip arthroplasty on postoperative day 0 now presenting with findings and functional limitations as listed below. She had a recent total hip arthroplasty with cable fixation of intraoperative fracture on 10/03/2019. She is pleasant and cooperative. She is motivated to return to prior level of function. Her prognosis for regaining previous mobility level is fair. Patient presents with clinical signs and symptoms consistent with current/admitting diagnoses that have resulted to mobility limitations, gait instability, generalized weakness, and impairment of motor control as demonstrated by the following impairment level findings: 1. Decreased strength to right hip and knee major muscle groups 2. Impaired standing balance 3. Impaired activity tolerance Impairments are contributing to the following functional limitations: 1. Increased dependence with transfers 2. Inability to safely ambulate without assistive device and physical assistance 3. Increase completion time for mobility ADL performance 4. Increased fall risk 5. Inability to negotiate steps alone safely Patient is assessed as a 50389 moderate complexity based on the following: History: Patient is a 64-year-old female with degenerative joint disease of the right hip and is status post rigth anterior total hip arthroplasty on postoperative day 0 with impairments, functional limitations and past medical history as indicated above Examination: Demonstrable impairment in strength, balance, and range of motion with underlying impairments and functional limitations as documented above Presentation: Evolving Decision Makin moderate complexity Goals: Goals X1 week 1. Sit-Stand independent 2. Stand-Sit independent 3. Bed-Chair independent 4. Chair-Bed independent 5. Independent gait on level surface with use of least restrictive device for at least 300 feet without report of pain nor dyspnea 6. Independent stair negotiation while holding onto bilateral rails for at least 10 steps without report of pain nor dyspnea 7. Independent with home exercise program 8. Good static and dynamic standing balance/tolerance Plan of Care/Treatment Plan: 1-2x/day, 7 days/week x 1 week. Plan of care has been reviewed with the ASSISTANT PROFESSOR OF EDUCATION providing the service under Physical Therapy direction. Initiate Physical Therapy intervention for strengthening, bed mobility, transfers, gait, stairs, balance training, use of assistive device. DISCHARGE RECOMMENDATIONS: Patient will benefit from detention facility placement for continued skilled physical therapy services in order to progress mobility level, strength, and balance in preparation for a safe discharge to home. Patient will require home health PT services once discharged home in order to facilitate a smooth transition to the home. TREATMENT CODE/TIME: 82009 x 25 minutes beginning at 13:10 P.M. Thank you very much for this referral. Flavia Farias, SPT Doctor of Physical Therapy Student [facility] Supervision provided by Darlin Kelley PT, DPT, CLT [facility] [place], [place]
[2019-11-06] MEDS: Celecoxib 200 MG CAP PO (21:02)
[2019-11-06] MEDS: Aspirin E.C. 81 MG TABEC PO (21:02)
[2019-11-07] VITALS (7 sets, daily range): BP systolic 91–130; BP diastolic 59–87; PULSE 82–96; RESP 16–22; TEMP 36.7–37.2; O2SAT 95–98
[2019-11-07] MEDS: Lactated Ringers 1,000 ML 80 ML IV (00:40)
[2019-11-07] MEDS: ceFAZolin 1 GM/50 ML BAG IVPB (05:42)
[2019-11-07] MEDS: Celecoxib 200 MG CAP PO ×2 (07:31→20:33)
[2019-11-07] MEDS: Acetaminophen 500 MG TAB 1000 MG PO ×3 (07:31→20:33)
[2019-11-07] MEDS: Pantoprazole 40 MG TABCR PO (07:32)
[2019-11-07] MEDS: Aspirin E.C. 81 MG TABEC PO ×2 (07:32→20:33)
[2019-11-07] MEDS: Atenolol 25 MG TAB PO (08:22)
[2019-11-07] MEDS: Docusate Sodium 100 MG CAP PO (08:22)
--- NOTE | 2019-11-07 13:35 | W.NUTCONSULT ---
Date of service: 11/07/19 Time of Service: 13:35 Nutritional Consult ASSESSMENT: 64 year old female s/p Right Hip DJD. BMI wnl for age. Following Regular meal plan with excellent intake. Not considered at nutritional risk. MONITORING AND EVALUATION: weight, po intake, labs Time Spent in Nutritional Counseling and Treatment: 0 time spent face to face
--- NOTE | 2019-11-07 13:56 | PHARADMIT ---
Admission Pharmacy Clinical Review RIGHT HIP DJD Code Status Full Code Current Weight Wgt-70.4 kg Renally Cleared and Narrow Therapeutic Index Meds CrCl~57.66 mL/min Meds-OK QTc Value / Action Taken none current BP Control, Fever BP- 115/79 Tmax- Electrolytes reviewed na DVT Prophylaxis ASA-ec Opiate Usage / Scheduled Bowel Regimen Ordered Yes Yes Plt/SCr for Heparin / Enoxaparin SCr-0.63 INR for Warfarin na H/H stable, WBC/Bands na Antibiotic appropriateness Ancef, Pre & Post-op Cultures and Sensitivities na Surgical ABX d/c within 24 hr yes DM control / Insulin Dosing na Heart Failure (Check EF%) (RICHARDSON's, B-Block, Diuretics) Atenolol IV to PO Switch No Home Meds Reviewed Yes Home Meds Not Ordered Mirtha Murdock, Comments
--- NOTE | 2019-11-07 15:35 | CHAPLAIN ---
Estefany was sitting up playing cards with her visitor when I stopped in. She told me about her hips surgery, her second one. She seems to be comfortable being here. She is a member of [facility] and the security compliance specialist visited her yesterday.
--- NOTE | 2019-11-07 16:10 | PT.INTREAT ---
Date of service: 11/07/19 Time of Service: 16:10 PT Notes Visit Reasons: RIGHT HIP DJD Inpatient Physical Therapy Treatment Note [facility] Date: 11/07/19 PRECAUTIONS: Fall, WBAT R SUBJECTIVE: Estefany is agreeable to participating in PT, stating that she feels good today. She plans to return home upon discharge, which she believes she will be ready for within the next day or two. OBJECTIVE: PAIN: Patient complained of R hip soreness/stiffness with movement and p.m., which she reports decreased with gait training BED MOBILITY/TRANSFERS Supine?sit: I with HOB flat Sit-supine: I with HOB flat Sit-stand: I Stand-sit: I Bed?chair: I Chair?bed: I GAIT Assistive Device: FWW Weight bearing: WBAT R Assist: S Distance: 75' + 150' in a.m.; 200' in p.m. Deviation: Step through gait pattern utilized, cueing for continuous FWW advancement in a.m. THEREX: Patient completed a lower extremity strengthening and stabilization program, in a seated position in a.m. and in a supine position in p.m., as per flow sheet. She ends with ice pack to right lateral hip and p.m. STAIRS: Up/down 3?4 and 2?6 using one rail/SPC and a step to pattern with supervision ASSESSMENT: Patient tolerated session with c/o right hip soreness/stiffness with movement, that reportedly improved with gait training. She was able to tolerate a progression in gait distance with FWW support and supervision, although required cueing for continuous FWW advancement in a.m. PLAN: Continue with PT's POC TREATMENT CODE/TIME: Session 1: 30 minutes; 87205, [id number] Session 2: 20 minutes; [id number]
--- NOTE | 2019-11-07 18:16 | INITIAL_ITS ---
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 Kang and Gaby, Hyperlipidemia - Not on medication; states borderline, Increased body mass index, Psoriasis - Derm Consult 06/09/18: Controlled with methotrexate. 2.5% hydrocortisone cream ears & elbows, Retention of urine, Rosacea, Urticaria, and Uterine leiomyoma. Surgical History: Cervical Procedure - Endometrial Biopsy, Colonoscopy - IV Sedation, and HERNIA REPAIR - HIATAL. PREVIOUS FUNCTIONAL STATUS/SOCIAL/FAMILY SUPPORTS:: Estefany lives in an apartment [place] [facility]. She has two sons but the youngest is . 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 She reports since retiring she spends her time at home reading, doing crossword puzzles, and going to breakfast with her friend, Anthony. Estefany drives and is independent with her ADLs at baseline. CURRENT FUNCTIONAL STATUS:: Estefany is sitting in her chair, reporting positive feedback on her stay and surgical intevention. She is requesting to return to [facility] again as she reports recovery went well for her after her last surgery. ADVANCE DIRECTIVES:: On file; her son, Bayron Grajeda, is agent. Has patient been provided with information about the portal?: No Did the patient sign up for the portal?: No CODE STATUS:: Full Code INSURANCE COVERAGE / FINANCIAL ISSUES:: Medicaid CURRENT HOME/COMMUNITY SERVICES/EQUIPMENT:: Estefany has a cane, crutches, raised toilet seat, shower chair, and a walker. No community services currently, as she is independent at baseline. PRIMARY CARE PHYSICIAN:: JULIUS Bianchi ([facility]). POTENTIAL DISCHARGE NEEDS:: Follow-up appointment with PCP and Dr. Garcia, and short-term rehab. PATIENT/FAMILY EDUCATION NEEDS:: Discharge plan, limitations, plan of care, including Ask Me Three and self-management. ANTICIPATED BARRIERS TO DISCHARGE:: None identified. TRANSPORTATION:: Via W/C Van coordinated by this investment underwriter. PLAN:: Estefany will discharge to [facility] for a short-term rehab stay prior to returning home. She will transport via the facility's W/C van at 1000 tomorrow with continued stability. CM continues to follow.
[2019-11-07] MEDS: Polyethylene Glycol 3350 17 GM PACKET PO (20:40)
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
[2019-11-08 03:50] VITALS: BP 104/67; PULSE 73; RESP 18; TEMP 36.8; O2SAT 98
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
[2019-11-08 07:17] VITALS: BP 101/66; PULSE 73; RESP 17; TEMP 36.6; O2SAT 96
[2019-11-08] MEDS: Pantoprazole 40 MG TABCR PO (07:47)
[2019-11-08] MEDS: Aspirin E.C. 81 MG TABEC PO (07:47)
[2019-11-08] MEDS: Acetaminophen 500 MG TAB 1000 MG PO (07:48)
[2019-11-08] MEDS: Celecoxib 200 MG CAP PO (07:48)
[2019-11-08] MEDS: Atenolol 25 MG TAB PO (07:48)
[2019-11-08] MEDS: Normal Saline Flush 10 ML SYR IV (07:49)
[2019-11-08] MEDS: Docusate Sodium 100 MG CAP PO (07:49)
[2019-11-08] MEDS: Polyethylene Glycol 3350 17 GM PACKET PO (07:49)
--- NOTE | 2019-11-08 10:04 | CMDISCH_ITS ---
LACE Index Scoring Tool - Questions: Length of Stay (in days): 2 Acuity (Admit via E.D.?): No E.D. Visits: 0 - Answers: Total Score: 2 Risk of Readmission: Low Risk Care Management Discharge Reason for Hospitalization: Right Hip DJD Discharge Plan: Estefany will discharge to [facility] for a short-term rehab stay prior to returning home. She will transport via the facility's W/C van at 1100 tomorrow with continued stability. CM continues to follow. Patient/Family Education Needs: Review discharge instructions, discuss Ask Me Three. Services Needed at Discharge: Long Term Facility ([facility] ), Transportation ([facility] W/C Van coordinated with the facility. )
--- NOTE | 2019-11-08 13:05 | PT.INDS ---
Date of service: 11/08/19 Time of Service: 13:05 PT Notes Visit Reasons: RIGHT HIP DJD Inpatient Physical Therapy Discharge Summary Date: 11/08/2019 Dates of Service: 11/06/2019 to 11/07/2019 This is a clinical summary of care provided on the duration of dates listed above. No charge was made in the completion of this documentation. Objective: Pain: 0/10 pain in R hips ROM: Right Upper Extremity: Shoulder Flexion WFL. Shoulder abduction WFL. Elbow flexion WFL. Wrist flexion WFL. Opening and closing of hand WFL. Left Upper Extremity: Shoulder Flexion WFL. Shoulder abduction WFL. Elbow flexion WFL. Wrist flexion WFL. Opening and closing of hand WFL. Right Lower Extremity: Hip flexion 130 degrees. Hip abduction WFL. Knee flexion WFL. Ankle dorsiflexion WFL. Ankle plantarflexion WFL. Left Lower Extremity: Hip flexion WFL. Hip abduction WFL. Knee flexion WFL. Ankle dorsiflexion WFL. Ankle plantarflexion WFL. Strength: Right Upper Extremity: Shoulder flexors 5/5. Shoulder abductors 5/5. Elbow flexors 5/5. Elbow extensors 5/5. Biometry Teacher strong. Left Upper Extremity: Shoulder flexors 5/5. Shoulder abductors 5/5. Elbow flexors 5/5. Elbow extensors 5/5. Biometry Teacher strong. Right Lower Extremity: Hip flexors 3+/5. Hip abductors 3+/5. Knee flexors 3+/5. Knee extensors 5/5. Ankle dorsiflexors 5/5. Ankle plantarflexors 5/5. Left Lower Extremity: Hip flexors 4+/5. Hip abductors 4+/5. Knee flexors 4+/5. Knee extensors 4+/5. Ankle dorsiflexors 5/5. Ankle plantarflexors 5/5. Sensation: Intact as to pain and pressure on bilateral lower extremities. Bed Mobility/Transfers: Rolling independent Supine to sit independent Sit to supine independent Sit to stand independent Stand to sit independent Bed to chair independent Chair to bed independent Gait: Patient tolerated level surface ambulation of 200 feet using front wheel walker requiring supervision by PT and wheelchair follow of PT student with step through gait pattern. Pt did not complain of increased pain with weight bearing. Balance: Static Sitting: Normal Dynamic Sitting: Normal Static Standing: Fair Dynamic Standing: Fair Assessment: Patient is a 64-year-old female with degenerative joint disease of the right hip and was status post right anterior total hip arthroplasty on postoperative day 0. Presented with findings and functional limitations as listed below. She had a recent total hip arthroplasty with cable fixation of intraoperative fracture on 10/03/2019. She is pleasant and cooperative. She is motivated to return to prior level of function. Her prognosis for regaining previous mobility level is fair. Patient presented with clinical signs and symptoms consistent with current/admitting diagnoses that have resulted to mobility limitations, gait instability, generalized weakness, and impairment of motor control as demonstrated by the following impairment level findings: 1. Decreased strength to right hip and knee major muscle groups 2. Impaired standing balance 3. Impaired activity tolerance Impairments continue to contribute to the following functional limitations: 1. Increased dependence with transfers 2. Inability to safely ambulate without assistive device and physical assistance 3. Increase completion time for mobility ADL performance 4. Increased fall risk 5. Inability to negotiate steps alone safely Patient is [place] a [id number] moderate complexity based on the following: History: Patient is a 64-year-old female with degenerative joint disease of the right hip and is status post right anterior total hip arthroplasty on postoperative day 0 with impairments, functional limitations and past medical history as indicated above Examination: Demonstrable impairment in strength, balance, and range of motion with underlying impairments and functional limitations as documented above Presentation: Evolving Decision Makin moderate complexity Goals: Goals X1 week 1. Sit-Stand independent-MET 2. Stand-Sit independent-MET 3. Bed-Chair independent-MET 4. Chair-Bed independent-MET 5. Independent gait on level surface with use of least restrictive device for at least 300 feet without report of pain nor dyspnea-NOT MET 6. Independent stair negotiation while holding onto bilateral rails for at least 10 steps without report of pain nor dyspnea-MET 7. Independent with home exercise program -NOT MET 8. Good static and dynamic standing balance/tolerance-NOT MET DISCHARGE RECOMMENDATIONS: To SNF for continued mobility progression in anticipation of discharge to home when safe. Thank you very much for this referral. Flavia Farias, SPT Doctor of Physical Therapy Student [facility] Supervision provided by Darlin Kelley PT, DPT, CLT [facility] [place], [place]
== END 2019-11-08 11:13 | disposition skilled nursing facility (03) | DRG 470 ==
LOC: PDS 09:39 → MS 10:06
PROVIDERS: Admitting Provider Student in an Organized Health Care Education/Training Program; Visit Provider Student in an Organized Health Care Education/Training Program
PROC: 0SR904A Replacement of Right Hip Joint with Ceramic on Polyethylene Synthetic Substitute, Uncemented, Open Approach (ICD-10-PCS; CPT 27130; principal; 2019-11-06 07:30)
DX: M16.11 Unilateral primary osteoarthritis, right hip (principal); M25.551 Pain in right hip; Z96.641 Presence of right artificial hip joint; Z79.82 Long term (current) use of aspirin; Z96.642 Presence of left artificial hip joint; I10 Essential (primary) hypertension
CPT/HCPCS: 27130; 97110; 97162; 97530; NC; 73501; J0690; J1100; J1885; J2250; J2370; J2405; J3010

== ENCOUNTER 2019-11-22 10:58 | Outpatient (CLI) | payer MEDICAID, SELFPAY ==
--- NOTE | 2019-11-22 10:02 | DI.RAD_ITS ---
EXAM: XR HIP RT COMPLETE AP PELVIS CLINICAL HISTORY: 1ST POST OP TECHNIQUE: COMPARISON: XR HIP LT AP LAT ONLY from 10/22/2019 XR HIP RT IN OR from 11/06/2019 FINDINGS: Three views were obtained. There are bilateral prostheses in position. The components appear well s eated. No other significant bony abnormality seen. IMPRESSION:
== END 2019-11-22 11:18 ==
PROVIDERS: Visit Provider Student in an Organized Health Care Education/Training Program
DX: Z96.643 Presence of artificial hip joint, bilateral (principal); Z47.1 Aftercare following joint replacement surgery
CPT/HCPCS: 73502

== ENCOUNTER 2020-01-16 00:25 | Outpatient (CLI) | payer MEDICAID, SELFPAY ==
[2020-01-16 08:36] LABS: HCT 42.3 % (36.0-46.0); HGB 13.7 g/dL (12.0-15.5); Mean Corp. HGB Concentration 32.4 g/dL (32.0-36.0); Mean Corpuscular Volume 92.8 fL (80-95); Mean Platelet Volume 10.2 fL (8.0-11.0); Platelet Count 296 x1000/uL (130-400); RBC 4.56 m/cumm (4.00-5.20); RBC Distribution Width 14.6 % (11.7-14.6); White Blood Cell Count 5.68 k/cumm (4.4-10.8)
[2020-01-16 09:35] LABS: ALT 28 U/L (14-59); AST 17 U/L (15-37)
[2020-01-16 09:43] LABS: Cholesterol 241 mg/dL (<200); Triglyceride 177 mg/dL (<150)
== END 2020-01-16 00:45 ==
PROVIDERS: Visit Provider Dermatology
DX: L40.0 Psoriasis vulgaris (principal); Z79.899 Other long term (current) drug therapy
CPT/HCPCS: 36415; 85027; 82465; 84450; 84460; 84478

== ENCOUNTER 2020-10-30 09:05 | Outpatient (CLI) | payer MEDICAID, SELFPAY ==
--- NOTE | 2020-10-30 09:00 | DI.RAD_ITS ---
EXAM: XR HIP PELVIS ADULT BL CLINICAL HISTORY: annual f/u bilat hip replacements TECHNIQUE: COMPARISON: CR XR HIP RT COMPLETE AP PELVIS from 11/22/2019 FINDINGS: Three views were obtained. There are total hip joint replacements in position bilaterally with cercl age wires at the proximal left femoral metaphysis. Alignment appears unchanged comparison with previ ous examination of November 2019. Components appear well seated. IMPRESSION: RADIATION DOSE DELIVERED: Total DLP
== END 2020-10-30 09:25 ==
PROVIDERS: Visit Provider Student in an Organized Health Care Education/Training Program
DX: Z96.643 Presence of artificial hip joint, bilateral (principal)
CPT/HCPCS: 73521

== ENCOUNTER 2022-10-29 00:23 | Outpatient (CLI) | payer MEDICARE, MEDICAID, SELFPAY ==
--- NOTE | 2022-10-29 07:00 | DI.MAMMO_ITS ---
Exam(s) MAMMO SCREENING EXAM: MAMMO SCREENING CLINICAL HISTORY: screening,z12.39 TECHNIQUE: Bilateral full field digital CC and MLO mammographic images were obtained with 3D tomosyn thesis and utilizing computer aided detection (CAD). COMPARISON: Available for comparison. FINDINGS: Masses/Architectural Distortion: There is a question of a new partially obscured nodule in the outer right breast 5 cm from the nipple on the craniocaudad view. Microcalcifications: No suspicious pleomorphic-type are seen. Skin Thickening/Nipple Retraction: None. IMPRESSION: 1. Question of a new right breast nodule. This is best appreciated on the CC view. 2. Further evaluation with a spot compression view and a limited right breast ultrasound is recommend ed. BI-RADS Category 0 - Assessment Incomplete: Need additional imaging evaluation Breast Density - Category B - Scattered areas of fibroglandular density Breast density category C or D implies that the patient has dense breast tissue. Dense breast tissue is very common and is not abnormal but dense breast tissue can make it harder to find cancer on a ma mmogram. Also, dense breast tissue may increase their breast cancer risk. This information about the result of the mammogram report was provided to the patient to raise their awareness. Use this report when you speak with the patient about their risks for breast cancer, which includes their family hist ory. At that time, you may recommend for more screening tests (Ultrasound or MRI) as they might be us eful based on their risk. A negative radiographic report should not delay biopsy if a dominant or clinically suspicious mass is present. Up to ten percent of cancers are not identified on mammography. A negative report may reinforce clinical impression. Adenosis and dense breasts may obscure an underlying neoplasm. False positive reports average 6 to 10%. Patient will receive a letter notifying them of these results.
== END 2022-10-29 00:43 ==
PROVIDERS: PCP Nurse Practitioner Family; Visit Provider Nurse Practitioner Family
DX: Z12.31 Encounter for screening mammogram for malignant neoplasm of breast (principal); R92.8 Other abnormal and inconclusive findings on diagnostic imaging of breast
CPT/HCPCS: 77063; 77067

== ENCOUNTER 2022-11-22 01:08 | Outpatient (CLI) | payer MEDICARE, MEDICAID, SELFPAY ==
--- NOTE | 2022-11-22 | DI.MAMMO_ITS ---
Exam(s) MG MAMMO SCREEN CALL BACK UNI US BREAST RT LIMITED EXAM: MG MAMMO SCREEN CALL BACK UNI and U/S breast RT limited CLINICAL HISTORY: F/U MAMMO, R92.8,? NEW RT BREAST NODULE. TECHNIQUE: Craniocaudal and mediolateral oblique Full Field Digital Mammography views of the right b reast with Computer Aided Diagnosis followed by Tomosynthesis and right breast ultrasound. COMPARISON: Comparison is made with prior examinations. FINDINGS: Mammography/Tomosynthesis: Masses/Architectural Distortion: The area of concern in the outer right breast does not persist on th e additional views. Microcalcifictions: No suspicious pleomorphic-type are seen. Skin Thickening/Nipple Retraction: None. Limited right breast US: Echotexture: Normal appearance of the glandular tissue. Shadowing: No suspicious foci. Cyst: None. Solid lesions: There are 2 benign-appearing lymph nodes seen in the right breast. One measures 0.4 x 0.2 cm and is located at 10 cm from the nipple. The 2nd measures 0.3 x 0.5 and is located at the 10 o'clock position 11 cm from the nipple. These do not appear to correspond to the mammographic area of concern. Ductal dilation: None. IMPRESSION: 1. No evidence of malignancy is noted. 2. A six-month follow-up right mammogram is recommended for re-evaluation. 3. The findings were discussed with the patient on the date of the examination. BI-RADS Category 3 - 6 month - Probably Benign Finding: Recommend follow-up imaging in 6 months Breast Density - Category B - Scattered areas of fibroglandular density Breast density Category C or D implies that the patient has dense breast tissue. Dense breast tissue can make it harder to find cancer on a mammogram. Dense breast tissue is also associated with an incr eased risk of breast cancer. This information about the result of the mammogram report was provided to the patient to raise their awareness. Use this report when you speak with the patient about their risks for breast cancer, which includes their family history. At that time, you may recommend additional screening tests (Ultrasoun d or MRI) as these tests may add significant information. A negative radiographic report should not delay biopsy if a dominant or clinically suspicious mass is present. Up to ten percent of cancers are not identified on mammography. A negative report may reinforce clinical impression. Adenosis and dense breasts may obscure an underlying neoplasm. False positive reports average 6 to 10%. Patient will receive a letter notifying them of these results.
== END 2022-11-22 01:28 ==
PROVIDERS: PCP Nurse Practitioner Family; Visit Provider Nurse Practitioner Family
DX: Z12.31 Encounter for screening mammogram for malignant neoplasm of breast (principal); R92.8 Other abnormal and inconclusive findings on diagnostic imaging of breast; N60.81 Other benign mammary dysplasias of right breast
CPT/HCPCS: 76642; 77063; 77067

== ENCOUNTER 2024-06-27 16:04 | Outpatient (REF) | payer MEDICARE, MEDICAID, SELFPAY ==
[2024-06-27 21:03] LABS: Abs Immature Grans 0.04 10^3/uL (0.0-0.06); Absolute Basophil Count 0.08 10^3/uL (0.0-0.2); Absolute Eosinophil Count 0.15 10^3/uL (0.0-0.7); Absolute Lymphocyte Count 1.62 10^3/uL (1.2-3.4); Absolute Monocyte Count 0.72 10^3/uL (0.1-0.8); Absolute Neutrophil Count 6.36 10^3/uL (1.2-6.7); Basophils % 0.9 %; Eosinophils % 1.7 %; HCT 43.6 % (36.0-46.0); HGB 14.2 g/dL (11.2-15.7); Immature Grans % 0.4 %; Lymphocytes % 18.1 %; MCH 31.3 pg (27.0-33.0); MCHC 32.6 % (32.0-36.0); MCV 96 fL (80-95); MPV 10.4 fL (8.0-11.0); Neutrophils % 70.9 %; Platelet Count 372 10^3/uL (130-400); RBC 4.53 10^6/uL (3.93-5.22); RDW 13.6 % (11.7-14.6); RDW-SD 48.1 fL; WBC 8.97 10^3/uL (4.4-10.8)
[2024-06-27 21:21] LABS: ALT 36 U/L (14-59); AST 23 U/L (15-37); Albumin 3.8 g/dL (3.4-5.0); Alkaline Phosphatase 78 U/L (46-116); BUN 15 mg/dL (7-18); Bilirubin, Total 0.25 mg/dL (0.2-1.0); CREATININE 0.9 mg/dL (0.55-1.02); Calcium 9.1 mg/dL (8.5-10.1); Calculated LDL 136 mg/dL (<100); Chloride 107 mmol/L (98-107); Cholesterol 232 mg/dL (<200); Estimated GFR 70.07 (mL/min/1.73m2); Glucose 123 mg/dL (74-106); HDL Cholesterol 49 mg/dL (40-60); Potassium 4.2 mmol/L (3.5-5.1); Sodium 142 mmol/L (136-145); Total Protein 7.5 g/dL (6.4-8.2); Triglyceride 237 mg/dL (<150)
== END 2024-06-27 16:05 | disposition home or self-care (01) ==
LOC: LBN 16:04
PROVIDERS: PCP Nurse Practitioner Family; Visit Provider Family Medicine
DX: E78.5 Hyperlipidemia, unspecified (principal); Z79.631 Long term (current) use of antimetabolite agent; Z00.00 Encounter for general adult medical examination without abnormal findings; Z12.39 Encounter for other screening for malignant neoplasm of breast; Z12.11 Encounter for screening for malignant neoplasm of colon; Z23 Encounter for immunization; I10 Essential (primary) hypertension; L40.9 Psoriasis, unspecified; L40.50 Arthropathic psoriasis, unspecified
CPT/HCPCS: 80053; 80061; 85025

== ENCOUNTER 2024-12-26 10:21 | Outpatient (REF) | payer MEDICARE, SELFPAY ==
[2024-12-26 14:30] LABS: COMMENT (LAB VIEW ONLY) 80.03 mg/dL; Microalb ug/mg Crea 10.9 ug/mg Cr
== END 2024-12-26 10:22 | disposition home or self-care (01) ==
LOC: LBN 10:21
PROVIDERS: PCP Nurse Practitioner Family; Visit Provider Nurse Practitioner Family
DX: I10 Essential (primary) hypertension (principal); Z23 Encounter for immunization; R73.9 Hyperglycemia, unspecified
CPT/HCPCS: 82043; 82570

== ENCOUNTER 2025-02-06 16:38 | Outpatient (REF) | payer MEDICARE, SELFPAY | END 2025-02-06 16:39 | disposition home or self-care (01) | LOC: LBN 16:38 | PROVIDERS: PCP Nurse Practitioner Family; Visit Provider Registered Nurse | DX: L98.9 Disorder of the skin and subcutaneous tissue, unspecified (principal) | CPT/HCPCS: 87070; 87205 ==